=== PATIENT | female | born 1990 | race Caucasian/White ===

== ENCOUNTER 2016-08-23 08:41 | Outpatient (CLI) | payer MEDICAID | END 2016-08-23 08:42 | disposition critical access hospital (66) | DX: R06.00 Dyspnea, unspecified (principal) | CPT/HCPCS: A0425; A0429 ==

== ENCOUNTER 2016-08-23 09:01 | Emergency (ER) | payer MEDICAID ==
[2016-08-23] MEDS ORDERED: LORazepam 0.5 MG TABLET PO STA (09:41)
[2016-08-23] MEDS ORDERED: HYDROcod/ACETAM 5/325 MG TABLET PO STA ×2 (09:41→11:19)
[2016-08-23] MEDS ORDERED: HYDROcod/ACETAM 5/325 MG TABLET ONE ×2 (09:43→11:30)
[2016-08-23] MEDS ORDERED: LORazepam 0.5 MG TABLET ONE (09:44)
[2016-08-23] MEDS ORDERED: CEPHALEXIN 250 MG CAPSULE PO STA (11:15)
[2016-08-23] MEDS ORDERED: CEPHALEXIN 250 MG CAPSULE PO ONE (11:18)
[2016-08-23] MEDS ORDERED: POTASSIUM BICARB 25 MEQ TABLET PO STA (11:19)
[2016-08-23] MEDS ORDERED: KETOROLAC 60 MG/2 ML VIAL IM STA (11:19)
[2016-08-23] MEDS ORDERED: KETOROLAC 60 MG/2 ML VIAL ONE (11:30)
[2016-08-23] MEDS ORDERED: POTASSIUM BICARB 25 MEQ TABLET PO ONE (11:30)
== END 2016-08-23 13:14 | disposition home or self-care (01) ==
DX: F41.0 Panic disorder [episodic paroxysmal anxiety] (principal); R00.0 Tachycardia, unspecified; R07.1 Chest pain on breathing; N30.00 Acute cystitis without hematuria; Z87.891 Personal history of nicotine dependence
CPT/HCPCS: 36415; 71020; 80053; 81001; 83690; 83735; 83880; 84484; 85025; 85379; 87086; 93005; 93010; 96372; 99284; 99285; A9270

== ENCOUNTER 2016-11-14 13:09 | Emergency (ER) | payer MEDICAID ==
--- NOTE | 2016-11-14 13:25 | ED Physician Documentation ---
PD HPI NECK PAIN - Stated complaint Stated Complaint: NECK PX - Chief complaint Chief Complaint: Heent - History obtained from History obtained from: Patient - History of Present Illness Timing - onset: How many weeks ago (1) Timing - duration: Weeks (1) Timing - details: Gradual onset, Waxing and waning Location: Lower, Right Quality: Pain, Spasm, Aching. No: Sharp, Throbbing Associated symptoms: Other (does not radiate to arm/fingers). No: Fever, Weakness, Numbness Improves with: Rest. No: Meds (tried Ibuprofen without relief) Worsened by: Movement, Twisting (turning head) Contributing factors: Twisting. No: Trauma Recently seen: Not recently seen Review of Systems Constitutional: denies: Fever, Chills Throat: reports: Dental pain / toothache (for past week or so, right lower tooth hurting with some gum swelling.). 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: Ovarian cysts : None HEENT: None Psych: Anxiety, ADD/ADHD Musculoskeletal: None Derm: Psoriasis - Past Surgical History Past Surgical History: Yes Ortho: Other /TERMINATION CLERK: section, Tubal ligation, Breast reduction - Present Medications Home Medications: Ambulatory Orders Medication Instructions Recorded Confirmed Dextroamphetamine/Amphetamine 20 mg PO BID 06/13/14 11/14/16 [Adderall 20 mg Tablet] Fluoxetine HCl [Prozac] 20 mg PO DAILY 08/23/16 11/14/16 Cephalexin [Keflex] 500 mg PO TID #15 capsule 11/14/16 Chlorhexidine Gluconate [Peridex] 5 ml MM BID #118 ml 11/14/16 Dexamethasone [Decadron] 4 mg PO DAILY #5 tablet 11/14/16 HYDROcodone/ACET 7.5/325 [[place] 1 each PO Q6H PRN #20 tablet 11/14/16 7.5/325] Methocarbamol [Robaxin] 500 mg PO Q6H PRN #25 tablet 11/14/16 Propranolol HCl 10 mg PO DAILY #30 tablet 11/14/16 - Allergies Allergies/Adverse Reactions: Allergies Allergy/AdvReac Type Severity Reaction Status Date / Time Latex, Natural Rubber Allergy Intermediate Hives Verified 08/23/16 09:15 citalopram hydrobromide * Allergy Nausea Verified 08/23/16 09:15 [From Celexa] sulfamethoxazole Allergy Edema Verified 08/23/16 09:15 [From Bactrim] trimethoprim [From Bactrim] Allergy Edema Verified 08/23/16 09:15 - Social History Does the pt smoke?: No Smoking Status: Former smoker Does the pt drink ETOH?: Yes Does the pt have substance abuse?: No - Immunizations Immunizations are current?: No - POLST Patient has POLST: No PD ED PE NORMAL - Vitals Vital signs reviewed: Yes - General General: Alert and oriented X 3, No acute distress, Well developed/nourished - HEENT HEENT: Pharynx benign. No: Dentition benign (marked caries and decay of teeth. Right lower with dcay to gumline and some redness/swelling of gum. No fluctuance. No neck adenopathy. ) - Neck Neck: Supple, no meningeal sign, No adenopathy, Other (tenderness right lateral trapezius muscle at upper thoracic level. No redness/ sores/ swelling. 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 Can treat with meds. Coincident tooth pain with mild gum swelling, that I don't see connected as infectious and I don't feel nodes in neck. Can treat that. Unrelated, noted heart rate fast and she says she has had tachycarida at 110-115 range for past 2 years since being on Adderall. Was treated with Propranolol and felt okay with HR under 100, but is out of meds now. Can give Rx for short term, but more likely resolution might be lowering dose of adderall. Prior charts show resting HR 110 regularly. ), d/w patient Departure - Departure Disposition: 01 Home, Self Care Clinical Impression: Pain due to dental caries, Sinus tachycardia, Neck pain, acute Condition: Stable Record reviewed to determine appropriate education?: Yes Instructions: ED Neck Back Pain General Follow-Up: Manuela Bryson PA-C [Primary Care Provider] - Prescriptions: Dexamethasone [Decadron] 4 mg PO DAILY #5 tablet Cephalexin [Keflex] 500 mg PO TID #15 capsule HYDROcodone/ACET 7.5/325 [[place] 7.5/325] 1 each PO Q6H PRN #20 tablet PRN Reason: Pain Chlorhexidine Gluconate [Peridex] 5 ml MM BID #118 ml Propranolol HCl 10 mg PO DAILY #30 tablet Methocarbamol [Robaxin] 500 mg PO Q6H PRN #25 tablet PRN Reason: Spasms Comments: Stay well hydrated. Use Decadron daily for the next 5 days for inflammation. You can use Aleve or ibuprofen twice a day as well. Heat to the neck area to help reduce stiffness. Methocarbamol as needed for muscle stiffness as well. Add Tylenol or hydrocodone as needed for pain. For the tooth, use cephalexin in the antiseptic mouth rinse as directed. Follow-up with [facility] for dental work at the next available appointment. Regarding the persistent fast heart rate, can use propranolol daily short-term to reduce the heart rate. Follow-up with your primary care though to see if the Adderall dose might need to be decreased if your heart rate has been fast ever since being on that medicine. Discharge Date/Time: 11/14/16 14:46
[2016-11-14] MEDS ORDERED: HYDROcod/ACETAM 5/325 MG TABLET PO STA (14:14)
[2016-11-14] MEDS ORDERED: CEPHALEXIN 250 MG CAPSULE PO STA (14:14)
[2016-11-14] MEDS ORDERED: DEXAMETHASONE 10 MG/ML VIAL PO STA (14:14)
[2016-11-14] MEDS ORDERED: METHOCARBAMOL 500 MG TABLET PO STA (14:15)
[2016-11-14] MEDS ORDERED: HYDROcod/ACETAM 5/325 MG TABLET ONE (14:28)
[2016-11-14] MEDS ORDERED: CEPHALEXIN 250 MG CAPSULE PO ONE (14:28)
[2016-11-14] MEDS ORDERED: CHERRY SYRUP 10 ML UDC PO ONE (14:29)
[2016-11-14] MEDS ORDERED: DEXAMETHASONE 10 MG/ML VIAL ONE (14:29)
[2016-11-14] MEDS ORDERED: METHOCARBAMOL 500 MG TABLET PO ONE (14:29)
[2016-11-14 14:48] VITALS: BP 136/90
== END 2016-11-14 14:46 | disposition home or self-care (01) ==
LOC: ED 13:09
DX: M54.2 Cervicalgia (principal); K08.89 Other specified disorders of teeth and supporting structures; K02.9 Dental caries, unspecified; R00.0 Tachycardia, unspecified; Z87.891 Personal history of nicotine dependence
CPT/HCPCS: 99282; 99283; A9270

== ENCOUNTER 2017-10-12 15:05 | Emergency (ER) | payer MEDICAID ==
--- NOTE | 2017-10-12 17:39 | ED Physician Documentation ---
PD HPI MHE - Stated complaint Stated Complaint: PANIC ATTACK - Chief complaint Chief Complaint: MHE - History obtained from History obtained from: Patient - History of Present Illness Primary symptom: Depression, Anxiety. No: Suicidal ideation, Suicide attempt, Out of meds Timing - onset: How many hours ago (2) Contributing factors: No: Substance abuse - ETOH, Substance abuse - drugs Similar symptoms before: Diagnosis (anxiety) Recently seen: Not recently seen Review of Systems Constitutional: denies: Fever, Chills, Myalgias Nose: denies: Rhinorrhea / runny nose, Congestion Throat: denies: Sore throat Cardiac: denies: Chest pain / pressure, Palpitations Respiratory: denies: Dyspnea, Cough GI: denies: Vomiting, Diarrhea Neurologic: denies: Focal weakness, Numbness, Near syncope, Confused, Altered mental status, Headache, Head injury Psychiatric: reports: Depressed, Anxiety, Insomnia. 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: section, Tubal ligation, Breast reduction - Present Medications Home Medications: Ambulatory Orders Medication Instructions Recorded Confirmed Fluoxetine HCl [Prozac] 20 mg PO DAILY 08/23/16 11/14/16 HYDROcodone/ACET 7.5/325 [[place] 1 each PO Q6H PRN #20 tablet 11/14/16 7.5/325] Methocarbamol [Robaxin] 500 mg PO Q6H PRN #25 tablet 11/14/16 Propranolol HCl 10 mg PO DAILY #30 tablet 11/14/16 Lorazepam [Ativan] 1 mg PO Q8H PRN #20 tablet 10/12/17 - Allergies Allergies/Adverse Reactions: Allergies Allergy/AdvReac Type Severity Reaction Status Date / Time Latex, Natural Rubber Allergy Intermediate Hives Verified 08/23/16 09:15 citalopram hydrobromide * Allergy Nausea Verified 08/23/16 09:15 [From Celexa] sulfamethoxazole Allergy Edema Verified 08/23/16 09:15 [From Bactrim] trimethoprim [From Bactrim] Allergy Edema Verified 08/23/16 09:15 - Social History Does the pt smoke?: No Smoking Status: Never smoker Does the pt drink ETOH?: Yes Does the pt have substance abuse?: No - Immunizations Immunizations are current?: No - POLST Patient has POLST: No PD ED PE NORMAL - Vitals Vital signs reviewed: Yes - General General: Alert and oriented X 3, Well developed/nourished, Other (seems anxious and somewhat tearful. Conversant and interacts well. ) - HEENT HEENT: Moist mucous membranes, Pharynx benign - Neck Neck: Supple, no meningeal sign, No adenopathy, Thyroid normal - Cardiac Cardiac: RRR, No murmur - Respiratory Respiratory: Clear bilaterally - Abdomen Abdomen: Soft, Non tender - Derm Derm: Normal color, Warm and dry - Extremities Extremities: No tenderness to palpate, Normal ROM s pain - Neuro Neuro: Alert and oriented X 3, No motor deficit, Normal speech Eye Opening: Spontaneous Motor: Obeys Commands Verbal: Oriented GCS Score: 15 Results - Vitals Vitals: Oxygen O2 Source Room air PD MEDICAL DECISION MAKING - Sepsis Event Vital Signs: Oxygen O2 Source Room air Departure - Departure Disposition: Home, Self Care Clinical Impression: Anxiety, Panic attack Depression Qualifiers: Depression Type: dysthymia Qualified Code(s): F34.1 - Dysthymic disorder Condition: Stable Record reviewed to determine appropriate education?: Yes Instructions: ED Panic Attack Follow-Up: Manuela Bryson PA-C [Primary Care Provider] - Prescriptions: Lorazepam [Ativan] 1 mg PO Q8H PRN #20 tablet PRN Reason: Anxiety Comments: Drink lots of fluids. Increase your fluoxetine from 20 mg daily to 40 mg daily initially with every other day for a week and then daily. Use Lorazepam 1 mg 2- 3 times a day if needed for acute anxiety episodes. Try not to take it entirely regularly. Follow-up with your primary care in the next week or 2, call for an appointment. Discharge Date/Time: 10/12/17 18:39
[2017-10-12] MEDS ORDERED: LORazepam 0.5 MG TABLET PO STA (17:58)
[2017-10-12 18:40] VITALS: BP 130/88
== END 2017-10-12 18:39 | disposition home or self-care (01) ==
LOC: ED 15:05
DX: F41.9 Anxiety disorder, unspecified (principal); F41.0 Panic disorder [episodic paroxysmal anxiety]; F34.1 Dysthymic disorder
CPT/HCPCS: 93005; 99283; A9270

== ENCOUNTER 2017-10-22 21:37 | Emergency (ER) | payer MEDICAID ==
[2017-10-22] MEDS ORDERED: LORazepam 0.5 MG TABLET PO STA (22:08)
[2017-10-22] MEDS ORDERED: LORazepam 0.5 MG TABLET ONE (22:22)
--- NOTE | 2017-10-22 22:23 | ED Physician Documentation ---
PD HPI MHE - Stated complaint Stated Complaint: PANIC ATTACKS - Chief complaint Chief Complaint: MHE - History obtained from History obtained from: Patient, Family - History of Present Illness Primary symptom: Anxiety Timing - onset: Today, Chronic Similar symptoms before: Work up / diagnostics, Treatment Recently seen: Emergency Dept - Additional information Additional information: Patient is a 27 year old female who is presenting to the emergency department for an anxiety attack. patient has had multiple visits for the same thing. patient has not been able to schedule follow up appointment with her pcp to schedule outpatient follow up. Patient has multiple stressors. patient is unemployed, lives with her parents and had a femur fracture so her mobility is decreased. patient can not identify any specific triggers and reports that she tries breathing exercises or apps. and talking with her siblings but she still has multiple attacks. Review of Systems Ten Systems: 10 systems reviewed and negative Psychiatric: reports: Depressed, Anxiety. 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 : None HEENT: None Psych: Anxiety, ADD/ADHD Musculoskeletal: None Derm: Psoriasis - Past Surgical History Past Surgical History: Yes Ortho: Other /GLASSWORKER: section, Tubal ligation, Breast reduction - Present Medications Home Medications: Ambulatory Orders Medication Instructions Recorded Confirmed Fluoxetine HCl [Prozac] 20 mg PO DAILY 08/23/16 11/14/16 HYDROcodone/ACET 7.5/325 [[place] 1 each PO Q6H PRN #20 tablet 11/14/16 7.5/325] Methocarbamol [Robaxin] 500 mg PO Q6H PRN #25 tablet 11/14/16 Propranolol HCl 10 mg PO DAILY #30 tablet 11/14/16 Lorazepam [Ativan] 1 mg PO Q8H PRN #20 tablet 10/12/17 - Allergies Allergies/Adverse Reactions: Allergies Allergy/AdvReac Type Severity Reaction Status Date / Time Latex, Natural Rubber Allergy Intermediate Hives Verified 10/22/17 21:44 citalopram hydrobromide * Allergy Nausea Verified 10/22/17 21:44 [From Celexa] sulfamethoxazole Allergy Edema Verified 10/22/17 21:44 [From Bactrim] trimethoprim [From Bactrim] Allergy Edema Verified 10/22/17 21:44 - Social History Does the pt smoke?: No Smoking Status: Former smoker Does the pt drink ETOH?: Yes Does the pt have substance abuse?: No - Immunizations Immunizations are current?: No - POLST Patient has POLST: No PD ED PE NORMAL - Vitals Vital signs reviewed: Yes - General General: Alert and oriented X 3 - HEENT HEENT: Atraumatic - Cardiac Cardiac: RRR - Respiratory Respiratory: No respiratory distress - Derm Derm: Normal color - Neuro Neuro: Alert and oriented X 3, No motor deficit, Normal speech Eye Opening: Spontaneous PD ED PE EXPANDED - Psych Psych: Depressed, Tearful, Anxious. No: Suicidal, Homicidal Results - Vitals Vitals: Vital Signs - 24 hr 10/22/17 10/22/17 21:39 22:31 Temperature 35.7 C L Heart Rate 76 73 Respiratory 19 20 Rate Blood Pressure 144/97 H 146/89 H O2 Saturation 99 100 Oxygen O2 Source Room air PD MEDICAL DECISION MAKING - ED course Complexity details: reviewed old records, re-evaluated patient, considered differential, d/w patient, d/w family ED course: Patient was seen and examined at bedside along with her father. patient's symptoms and terminal operator plan were discussed with her. Patient was given resources and one dose of ativan. patient and father felt comfortable with the plan and patient was stable for discharge with outpatient follow up. - Sepsis Event Vital Signs: Vital Signs - 24 hr 10/22/17 10/22/17 21:39 22:31 Temperature 35.7 C L Heart Rate 76 73 Respiratory 19 20 Rate Blood Pressure 144/97 H 146/89 H O2 Saturation 99 100 Oxygen O2 Source Room air Departure - Departure Disposition: 01 Home, Self Care Clinical Impression: Panic attack Condition: Good Instructions: ED Stress React, ED Panic Attack Follow-Up: Manuela Bryson PA-C [Primary Care Provider] - Within 3 Days Comments: Stress and anxiety is a very complicated medical illness. it is normally multifactorial and treatment normally takes a number of different approaches. the medications are only a small part of the treatment. You should call your doctor on tuesday to schedule a follow up appointment and set up care with a therapist. In the meantime you can try to exercise in anyway that you can. You can try lifting weights, use exercise bands or isometric exercises. You can also try to decrease the amount of sugar and stimulants in your diet. It you are ever feeling overwhelmed you can call the crisis line at to talk with someone and to try to schedule a follow up appointment. YOu may return to the emergency department at any time for new, worsening or uncontrollable symptoms. Discharge Date/Time: 10/22/17 22:30
[2017-10-22 22:32] VITALS: BP 146/89
== END 2017-10-22 22:30 | disposition home or self-care (01) ==
LOC: ED 21:37
DX: F41.0 Panic disorder [episodic paroxysmal anxiety] (principal); Z87.891 Personal history of nicotine dependence
CPT/HCPCS: 99283; A9270

== ENCOUNTER 2018-03-23 07:00 | Outpatient (CLI) | payer MEDICAID | END 2018-03-23 07:01 | disposition critical access hospital (66) | LOC: EMS 07:00 | PROVIDERS: ATTEND Surgery | DX: R11.2 Nausea with vomiting, unspecified (principal); R42 Dizziness and giddiness | CPT/HCPCS: A0425; A0429; A0999 ==

== ENCOUNTER 2018-03-23 07:24 | Emergency (ER) | payer MEDICAID ==
[2018-03-23] MEDS ORDERED: ONDANSETRON ODT 4 MG TABLET TL STA (07:59)
[2018-03-23] MEDS ORDERED: LORazepam 0.5 MG TABLET PO STA (08:00)
[2018-03-23 08:50] LABS: BASOPHILS # (AUTO) 0.1 10^3/uL (0.0-0.1); BASOPHILS % (AUTO) 0.8 %; EOSINOPHILS % (AUTO) 0.2 %; LYMPHOCYTES # (AUTO) 1.9 10^3/uL (1.5-3.5); LYMPHOCYTES % (AUTO) 13.2 %; MEAN CORPUSCULAR HEMOGLOBIN 28.8 pg (27.0-31.0); MEAN CORPUSCULAR VOLUME 84.7 fL (81.0-99.0); MEAN PLATELET VOLUME 7.6 fL (7.9-10.8); MONOCYTES % (AUTO) 6.8 %; NEUTROPHILS # (AUTO) 11.4 10^3/uL (1.5-6.6); PLT - PLATELET COUNT 407 10^3/uL (130-450); RED BLOOD COUNT 4.85 10^6/uL (4.20-5.40); RED CELL DISTRIBUTION WIDTH 13.3 % (12.0-15.0); WHITE BLOOD COUNT 14.4 x10^3/uL (4.8-10.8)
[2018-03-23 08:59] LABS: ALBUMIN 3.6 g/dL (3.2-5.5); ALBUMIN/GLOBULIN RATIO 0.8 (1.0-2.2); BILIRUBIN,TOTAL 0.4 mg/dL (0.2-1.0); CREATININE 0.5 mg/dL (0.4-1.0); MAGNESIUM 1.9 mg/dL (1.7-2.8); TOTAL PROTEIN 8.3 g/dL (6.7-8.2)
[2018-03-23] MEDS ORDERED: PROMETHAZINE 25 MG TABLET PO STA (09:37)
--- NOTE | 2018-03-23 10:53 | ED Physician Documentation ---
PD HPI CHEST PAIN - Stated complaint Stated Complaint: Dizziness - Chief complaint Chief Complaint: Abd Pain - History obtained from History obtained from: Patient - History of Present Illness Timing - onset: How many weeks ago (has felt increased nausea and anxioety the past couple of weeks since increased dose of Straterra. Has had nausea and anxiety in the past, but more recently. Today with feeling of anxiety when felt that heart was skipping/racing. No dyspnea.) Timing - onset during: Rest Timing - duration: Hours Timing - details: Abrupt onset, Still present Quality: Tightness, Other (feeling of heart racing, and chest tightness.) Location: Substernal Radiation: No: Jaw, Neck, Back Improved by: No: Rest Associated symptoms: Shortness of air, Nausea, Palpitations. No: Feeling faint / dizzy, General Weakness, Cough Similar symptoms before: Diagnosis (anxiety) Recently seen: Clinic (2 weeks ago with change in med doses) Review of Systems Constitutional: denies: Fever, Chills Nose: denies: Rhinorrhea / runny nose, Congestion Throat: denies: Sore throat Cardiac: reports: Chest pain / pressure, Palpitations. denies: Pedal edema, Calf pain Respiratory: reports: Dyspnea. denies: Cough, Wheezing GI: denies: Abdominal Pain, Nausea, Vomiting, Diarrhea Musculoskeletal: denies: Neck pain, Back pain Neurologic: reports: Generalized weakness. 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: section, Tubal ligation, Breast reduction - Present Medications Home Medications: Ambulatory Orders Medication Instructions Recorded Confirmed Fluoxetine HCl [Prozac] 20 mg PO DAILY 08/23/16 11/14/16 Propranolol HCl 10 mg PO DAILY #30 tablet 11/14/16 Atomoxetine HCl [Strattera] 100 mg PO 03/23/18 03/23/18 LORazepam [Ativan] 1 mg PO BID PRN #15 tablet 03/23/18 Ondansetron Odt [Zofran] 4 mg TL Q6H PRN #20 tablet 03/23/18 tiZANidine [Zanaflex] 4 mg pe 03/23/18 - Allergies Allergies/Adverse Reactions: Allergies Allergy/AdvReac Type Severity Reaction Status Date / Time Latex, Natural Rubber Allergy Intermediate Hives Verified 03/23/18 07:32 citalopram hydrobromide * Allergy Nausea Verified 03/23/18 07:32 [From Celexa] sulfamethoxazole Allergy Edema Verified 03/23/18 07:32 [From Bactrim] trimethoprim [From Bactrim] Allergy Edema Verified 03/23/18 07:32 - Social History Does the pt smoke?: No Smoking Status: Never smoker Does the pt drink ETOH?: Yes Does the pt have substance abuse?: No - Immunizations Immunizations are current?: No - POLST Patient has POLST: No PD ED PE NORMAL - Vitals Vital signs reviewed: Yes - General General: Alert and oriented X 3, Well developed/nourished, Other (seems anxious) - HEENT HEENT: Pharynx benign - Neck Neck: Supple, no meningeal sign, No adenopathy - Cardiac Cardiac: RRR, No murmur - Respiratory Respiratory: Clear bilaterally - Abdomen Abdomen: Soft, Non tender - Back Back: No CVA TTP - Derm Derm: Normal color, Warm and dry - Extremities Extremities: No tenderness to palpate, Normal ROM s pain, No edema, No calf tenderness / cord - Neuro Neuro: Alert and oriented X 3, No motor deficit, Normal speech Results - Vitals Vitals: Oxygen O2 Source Room air - EKG (time done) 07:32 Rate: Rate (enter#) (91) Rhythm: NSR [place]: Normal Intervals: Normal [place] QRS: Normal Ischemia: Normal ST segments. No: ST elevation c/w ischemia, ST depression - Labs Labs: Laboratory Tests 03/23/18 03/23/18 03/23/18 08:38 08:38 08:38 WBC 14.4 H RBC 4.85 Hgb 14.0 Hct 41.1 MCV 84.7 MCH 28.8 MCHC 34.0 RDW 13.3 Plt Count 407 MPV 7.6 L Neut # (Auto) 11.4 H Lymph # (Auto) 1.9 [place] # (Auto) 1.0 Eos # (Auto) 0.0 Baso # (Auto) 0.1 Absolute Nucleated RBC 0.00 Nucleated RBC % 0.0 Sodium 135 Potassium 3.6 Chloride 106 Carbon Dioxide 23 Anion Gap 6.0 BUN 8 Creatinine 0.5 Estimated GFR (MDRD) 147 Glucose 130 H Calcium 9.0 Magnesium 1.9 Total Bilirubin 0.4 AST 30 ALT 31 Alkaline Phosphatase 109 Total Protein 8.3 H Albumin 3.6 Globulin 4.7 H Albumin/Globulin Ratio 0.8 L Lipase 20 L TSH 1.15 PD MEDICAL DECISION MAKING - ED course Complexity details: re-evaluated patient (feeling better with meds. Talked with her about having PCP decrease her Straterra dose back down, since feeling nauseated and anxious since the increased dose. Can give nausea meds and short term ativan for episodes. ), considered differential (had feeling of heart palpitations and then felt short of breath and anxious. Has had anxiety in the past. Heart rate and rhythm normal here. ), d/w patient Departure - Departure Disposition: 01 Home, Self Care Clinical Impression: Heart palpitations, Anxiety reaction Condition: Stable Record reviewed to determine appropriate education?: Yes Follow-Up: Manuela Bryson PA-C [Primary Care Provider] - Prescriptions: LORazepam [Ativan] 1 mg PO BID PRN #15 tablet PRN Reason: Anxiety Ondansetron Odt [Zofran] 4 mg TL Q6H PRN #20 tablet PRN Reason: Nausea / Vomiting Comments: Stay well-hydrated. Continue usual medications. Add ondansetron if needed for nausea. Ativan if needed for the anxiety reactions. Follow-up with your primary care next week regarding ongoing medications and prescriptions. Discharge Date/Time: 03/23/18 11:16
[2018-03-23 10:58] VITALS: BP 116/90
== END 2018-03-23 11:16 | disposition home or self-care (01) ==
LOC: EDUNIT# → ED 07:24
DX: R00.2 Palpitations (principal); F41.9 Anxiety disorder, unspecified
CPT/HCPCS: 36415; 80053; 83690; 83735; 84443; 85025; 93005; 99283; A9270; Q0162; Q0169

== ENCOUNTER 2018-04-11 08:30 | Outpatient (CLI) | payer MEDICAID | END 2018-04-11 08:31 | disposition critical access hospital (66) | LOC: EMS 08:30 | PROVIDERS: ATTEND Surgery | DX: R07.9 Chest pain, unspecified (principal); R00.2 Palpitations; R11.0 Nausea | CPT/HCPCS: A0425; A0429; A0999 ==

== ENCOUNTER 2018-04-11 08:53 | Emergency (ER) | payer MEDICAID ==
--- NOTE | 2018-04-11 09:25 | ED Physician Documentation ---
PD HPI CHEST PAIN - Stated complaint Stated Complaint: PALPITATIONS - Chief complaint Chief Complaint: Cardiac - History obtained from History obtained from: Patient - History of Present Illness Timing - onset during: Rest Timing - duration: Hours (5) Timing - details: Abrupt onset Pain level max: 7 Pain level now: 7 Quality: Tightness Location: Other (mid chest) Radiation: Other (no) Improved by: Nothing Worsened by: Other (nothing) Associated symptoms: Nausea, Palpitations. No: Shortness of air, Diaphoresis, Vomiting, Feeling faint / dizzy, General Weakness, Cough Similar symptoms before: Work up / diagnostics Recently seen: Not recently seen - Additional information Additional information: 27-year-old female with history of smoking and vaping but quit 2 weeks ago, palpitation with chest discomfort the past 2 years, panic attacks the past 2 years, vitamin D deficiency and bilateral hip fracture from falls 3 years ago and currently using crutches with plans of a right hip replacement in a month. Here with complaint of feeling palpitation with chest pressure While she was resting in bed 5 hours ago. She denies any shortness of breath, dizziness, Cough or recent illness. She denies any Trauma, travel or Recent surgeries Review of Systems Ten Systems: 10 systems reviewed and negative Constitutional: denies: Fever, Myalgias Cardiac: reports: Chest pain / pressure, Palpitations. denies: Pedal edema, Calf pain Respiratory: denies: Dyspnea, Cough GI: reports: Nausea. 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 PROJECT ARCHITECT: Ovarian cysts : None HEENT: None Psych: Anxiety, ADD/ADHD Musculoskeletal: None Derm: Psoriasis - Past Surgical History Past Surgical History: Yes Ortho: Other /SENIOR PROJECT ARCHITECT: section, Tubal ligation, Breast reduction - Present Medications Home Medications: Ambulatory Orders Medication Instructions Recorded Confirmed Fluoxetine HCl [Prozac] 20 mg PO DAILY 08/23/16 11/14/16 Propranolol HCl 10 mg PO DAILY #30 tablet 11/14/16 Atomoxetine HCl [Strattera] 100 mg PO 03/23/18 03/23/18 LORazepam [Ativan] 1 mg PO BID PRN #15 tablet 03/23/18 Ondansetron Odt [Zofran] 4 mg TL Q6H PRN #20 tablet 03/23/18 tiZANidine [Zanaflex] 4 mg pe 03/23/18 Cephalexin [Keflex] 500 mg PO TID #21 capsule 04/11/18 - Allergies Allergies/Adverse Reactions: Allergies Allergy/AdvReac Type Severity Reaction Status Date / Time Latex, Natural Rubber Allergy Intermediate Hives Verified 04/11/18 09:03 citalopram hydrobromide * Allergy Nausea Verified 04/11/18 09:03 [From Celexa] sulfamethoxazole Allergy Edema Verified 04/11/18 09:03 [From Bactrim] trimethoprim [From Bactrim] Allergy Edema Verified 04/11/18 09:03 - Social History Does the pt smoke?: No Smoking Status: Former smoker Does the pt drink ETOH?: Yes Does the pt have substance abuse?: No - Immunizations Immunizations are current?: No Immunizations: TDAP >10years/unknown - POLST Patient has POLST: No PD ED PE NORMAL - Vitals Vital signs reviewed: Yes - General General: Alert and oriented X 3, No acute distress, Well developed/nourished - HEENT HEENT: Moist mucous membranes, Pharynx benign - Neck Neck: Supple, no meningeal sign, No adenopathy, Thyroid normal - Cardiac Cardiac: RRR, No murmur - Respiratory Respiratory: No respiratory distress, Clear bilaterally - Abdomen Abdomen: Normal bowel sounds, Soft, Non tender, Non distended - Back Back: No CVA TTP - Derm Derm: Normal color, Warm and dry - Extremities Extremities: No deformity - Neuro Neuro: Alert and oriented X 3 - Psych Psych: Normal mood, Normal affect Results - Vitals Vitals: Vital Signs - 24 hr 04/11/18 04/11/18 04/11/18 08:56 10:59 12:38 Temperature 36.9 C Heart Rate 111 H 111 H 95 Respiratory 18 18 24 Rate Blood Pressure 139/91 H 127/89 H 150/94 H O2 Saturation 98 100 97 Oxygen O2 Source Room air - EKG (time done) 0902 Rate: Rate (enter#) Rhythm: Sinus tachycardia [place]: Normal Intervals: Normal [place] QRS: Normal Ischemia: Non specific changes - Labs Labs: Laboratory Tests 04/11/18 04/11/18 04/11/18 09:05 09:40 09:40 WBC 19.7 H RBC 4.78 Hgb 13.8 Hct 41.1 MCV 86.0 MCH 28.9 MCHC 33.6 RDW 13.6 Plt Count 468 H MPV 7.6 L Neut # (Auto) 16.3 H Lymph # (Auto) 2.1 Dundy # (Auto) 1.2 H Eos # (Auto) 0.0 Baso # (Auto) 0.1 Absolute Nucleated RBC 0.00 Nucleated RBC % 0.0 D-Dimer Sodium 137 Potassium 3.6 Chloride 101 Carbon Dioxide 26 Anion Gap 10.0 BUN 8 Creatinine 0.6 Estimated GFR (MDRD) 119 Glucose 135 H Lactic Acid Calcium 9.2 Total Bilirubin 0.5 AST 30 ALT 40 Alkaline Phosphatase 111 Troponin I < 0.04 Total Protein 8.5 H Albumin 3.7 Globulin 4.8 H Albumin/Globulin Ratio 0.8 L Lipase 19 L TSH Serum HCG, Qual Urine Color Urine Clarity Urine pH Ur Specific [place] Urine Protein Urine Glucose (UA) Urine Ketones Urine Occult Blood Urine Nitrite Urine Bilirubin Urine Urobilinogen Ur Leukocyte Esterase Urine RBC Urine WBC Ur Squamous Epith Cells Urine Bacteria Ur Microscopic Review Urine Culture Comments 04/11/18 04/11/18 04/11/18 09:40 09:40 10:43 WBC RBC Hgb Hct MCV MCH MCHC RDW Plt Count MPV Neut # (Auto) Lymph # (Auto) Dundy # (Auto) Eos # (Auto) Baso # (Auto) Absolute Nucleated RBC Nucleated RBC % D-Dimer Sodium Potassium Chloride Carbon Dioxide Anion Gap BUN Creatinine Estimated GFR (MDRD) Glucose Lactic Acid 1.8 Calcium Total Bilirubin AST ALT Alkaline Phosphatase Troponin I Total Protein Albumin Globulin Albumin/Globulin Ratio Lipase TSH 1.66 Serum HCG, Qual NEGATIVE Urine Color Urine Clarity Urine pH Ur Specific [place] Urine Protein Urine Glucose (UA) Urine Ketones Urine Occult Blood Urine Nitrite Urine Bilirubin Urine Urobilinogen Ur Leukocyte Esterase Urine RBC Urine WBC Ur Squamous Epith Cells Urine Bacteria Ur Microscopic Review Urine Culture Comments 04/11/18 04/11/18 04/11/18 11:30 13:33 13:33 WBC RBC Hgb Hct MCV MCH MCHC RDW Plt Count MPV Neut # (Auto) Lymph # (Auto) Dundy # (Auto) Eos # (Auto) Baso # (Auto) Absolute Nucleated RBC Nucleated RBC % D-Dimer < 200.0 L Sodium Potassium Chloride Carbon Dioxide Anion Gap BUN Creatinine Estimated GFR (MDRD) Glucose Lactic Acid Calcium Total Bilirubin AST ALT Alkaline Phosphatase Troponin I < 0.04 Total Protein Albumin Globulin Albumin/Globulin Ratio Lipase TSH Serum HCG, Qual Urine Color YELLOW Urine Clarity HAZY Urine pH 6.0 Ur Specific Fli[place] >=1.030 H Urine Protein NEGATIVE Urine Glucose (UA) NEGATIVE Urine Ketones TRACE Urine Occult Blood MODERATE H Urine Nitrite NEGATIVE Urine Bilirubin NEGATIVE Urine Urobilinogen 0.2 (NORMAL) Ur Leukocyte Esterase NEGATIVE Urine RBC 0-5 Urine WBC 4-5 Ur Squamous Epith Cells MANY Squamous H Urine Bacteria Moderate H Ur Microscopic Review INDICATED Urine Culture Comments NOT INDICATED PD MEDICAL DECISION MAKING - ED course Complexity details: reviewed results, re-evaluated patient, considered differential (Thyroid disease, electrolyte imbalance, anemia, ACS, PE, panic attack), d/w patient ED course: 1042 patient informed of test results. Patient denies any fever or coughing or taking any steroids. Her white count today is 19.7 patient did claim that she has urinary frequency with intermittent dysuria but no vaginal discharge. She claims she does not drink water. Patient's heart rate is less than 100 cardiac technologist is sinus rhythm. 1305 cardiac technologist is sinus rhythm at rate of 88-90. Patient updated on test results and agreed to the second troponin and a d-dimer to rule out blood clots. Patient states she has still slight pressure. Patient is requesting for antianxiety medication. Will give Ativan. 1419 patient denies any chest pain or shortness of breath or feeling palpitation. Patient stated she received Ativan and was appreciative of this. Discussed outpatient follow-up for her tachycardia which includes referral to paint preparer for Holter monitor and outpatient echocardiogram.Was also instructed to get another CBC to monitor her elevated WBC. Departure - Departure Disposition: 01 Home, Self Care Clinical Impression: Atypical chest pain, Intermittent palpitations Leukocytosis Qualifiers: Leukocytosis type: unspecified Qualified Code(s): D72.829 - Elevated white blood cell count, unspecified UTI (urinary tract infection) Qualifiers: Urinary tract infection type: acute cystitis Hematuria presence: without hematuria Qualified Code(s): N30.00 - Acute cystitis without hematuria Condition: Stable Instructions: ED Chest Pain NonCardiac, ED UTI Cystitis Female, ED Palpitations Prescriptions: Cephalexin [Keflex] 500 mg PO TID #21 capsule Comments: Drinks 6-8 glasses of water per day. Take the Keflex for your UTI. Follow-up with your primary doctor in 2 days to have your white count recheck. Today it is 19.7. Get a referral to a paint preparer from your primary doctor for a event week Holter monitor and an outpatient echocardiogram. If worse return to the emergency room.
--- NOTE | 2018-04-11 09:39 | XRAY Report ---
Reason: palpitations, chest pressure. Procedure Date: 04/11/2018 Accession Number: [id number] / [id number] Procedure: XR - Chest 1 View X-Ray CPT Code: 82274 FULL RESULT: EXAM: CHEST RADIOGRAPHY EXAM DATE: 04/11/2018 09:25 AM. CLINICAL HISTORY: Palpitations, chest pressure. COMPARISON: CHEST 2 VIEW PA/LAT 08/23/2016 9:45 AM. TECHNIQUE: 1 view. FINDINGS: Lungs/Pleura: Relatively shallow inspiration. No consolidation, vascular congestion, pleural effusion, or pneumothorax. Mediastinum: Normal cardiomediastinal silhouette. Other: No acute fracture evident. IMPRESSION: 1. Shallow inspiration. Otherwise unremarkable. RADIA
[2018-04-11 09:50] LABS: BASOPHILS # (AUTO) 0.1 10^3/uL (0.0-0.1); BASOPHILS % (AUTO) 0.4 %; EOSINOPHILS % (AUTO) 0.2 %; HGB - HEMOGLOBIN 13.8 g/dL (12.0-16.0); LYMPHOCYTES # (AUTO) 2.1 10^3/uL (1.5-3.5); LYMPHOCYTES % (AUTO) 10.8 %; MEAN CORPUSCULAR HEMOGLOBIN 28.9 pg (27.0-31.0); MEAN CORPUSCULAR HGB CONC 33.6 g/dL (32.0-36.0); MEAN PLATELET VOLUME 7.6 fL (7.9-10.8); MONOCYTES # (AUTO) 1.2 10^3/uL (0.0-1.0); MONOCYTES % (AUTO) 6.2 %; NEUTROPHILS # (AUTO) 16.3 10^3/uL (1.5-6.6); NEUTROPHILS % (AUTO) 82.4 %; PLT - PLATELET COUNT 468 10^3/uL (130-450); RED BLOOD COUNT 4.78 10^6/uL (4.20-5.40); RED CELL DISTRIBUTION WIDTH 13.6 % (12.0-15.0); WHITE BLOOD COUNT 19.7 x10^3/uL (4.8-10.8)
[2018-04-11 10:25] LABS: HCG,QUALITATIVE BLOOD NEGATIVE
[2018-04-11 10:33] LABS: ALBUMIN 3.7 g/dL (3.2-5.5); ALBUMIN/GLOBULIN RATIO 0.8 (1.0-2.2); BILIRUBIN,TOTAL 0.5 mg/dL (0.2-1.0); CALCIUM 9.2 mg/dL (8.5-10.3); CREATININE 0.6 mg/dL (0.4-1.0); TOTAL PROTEIN 8.5 g/dL (6.7-8.2)
[2018-04-11] MEDS: ACETAMINOPHEN 325 MG TABLET PO STA (10:46)
[2018-04-11 12:00] LABS: BILIRUBIN,URINE NEGATIVE (NEGATIVE); GLUCOSE, URINE (UA) NEGATIVE (NEGATIVE); KETONES,URINE (UA) TRACE mg/dL (NEGATIVE); LEUKOCYTE ESTERASE, URINE NEGATIVE (NEGATIVE); NITRITE,URINE NEGATIVE (NEGATIVE); OCCULT BLOOD,URINE MODERATE (NEGATIVE); PROTEIN,URINE NEGATIVE (NEGATIVE); UROBILINOGEN,URINE 0.2 (NORMAL) E.U./dL (NORMAL)
[2018-04-11 12:04] LABS: CLARITY,URINE HAZY (CLEAR)
[2018-04-11 12:09] LABS: BACTERIA,URINE Moderate /HPF (None Seen); RBC,URINE 0-5 /HPF (0-5); SQUAMOUS EPITHELIAL CELL,UR MANY Squamous (<= Few)
[2018-04-11] MEDS: LORazepam 0.5 MG TABLET PO STA (14:11)
[2018-04-11] MEDS: LORazepam 2 MG/ML VIAL IVP STA (14:13)
[2018-04-11] MEDS ORDERED: LORazepam 0.5 MG TABLET ONE (14:13)
[2018-04-11 14:27] VITALS: BP 134/77
== END 2018-04-11 14:35 | disposition home or self-care (01) ==
LOC: EDUNIT# → ED 08:53
DX: R07.89 Other chest pain (principal); R00.2 Palpitations; D72.829 Elevated white blood cell count, unspecified; N30.00 Acute cystitis without hematuria; F41.9 Anxiety disorder, unspecified; R00.0 Tachycardia, unspecified; I10 Essential (primary) hypertension; Z87.891 Personal history of nicotine dependence
CPT/HCPCS: 36415; 71045; 80053; 81001; 81003; 83605; 83690; 84443; 84484; 84703; 85025; 85379; 87086; 93005; 96374; 99283; 99284

== ENCOUNTER 2018-05-29 02:46 | Emergency (ER) | payer MEDICAID ==
[2018-05-29 02:54] VITALS: BP 143/95
[2018-05-29] MEDS ORDERED: LIDOCAINE VISCOUS 2% 15 ML UDC MM STA (03:00)
[2018-05-29] MEDS ORDERED: MAG HYDROX/AL HYDROX/SIMETH 30 ML UDC PO STA (03:00)
--- NOTE | 2018-05-29 03:09 | ED Physician Documentation ---
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 Her palpitations started 2 or 3 hours prior to arrival while in bed. She denies associated chest pain, cough, or shortness of breath. She reports mild nausea, without vomiting. She feels somewhat anxious, describing it as "like just before a panic attack comes on." She she reports having history of panic attacks, with similar symptoms in the past, at which times her symptoms improved with antianxiety medication. She denies the use of alcohol or other drugs, except for marijuana. She has a history of drinking energy drinks, stating she is trying to cut down because of anxiety. Review of Systems Constitutional: denies: Fever Ears: denies: Tinnitus/ringing Nose: denies: Congestion Throat: denies: Sore throat Cardiac: reports: Palpitations. denies: Chest pain / pressure Respiratory: denies: Dyspnea, Cough GI: reports: Nausea. 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 : None HEENT: None Psych: Anxiety, ADD/ADHD Musculoskeletal: None Derm: Psoriasis - Past Surgical History Past Surgical History: Yes Ortho: Other /POCKETS AND PIECES NECKTIE OPERATOR: section, Tubal ligation, Breast reduction - Present Medications Home Medications: Ambulatory Orders Medication Instructions Recorded Confirmed Fluoxetine HCl [Prozac] 20 mg PO DAILY 08/23/16 11/14/16 Propranolol HCl 10 mg PO DAILY #30 tablet 11/14/16 Atomoxetine HCl [Strattera] 100 mg PO 03/23/18 03/23/18 LORazepam [Ativan] 1 mg PO BID PRN #15 tablet 03/23/18 Ondansetron Odt [Zofran] 4 mg TL Q6H PRN #20 tablet 03/23/18 tiZANidine [Zanaflex] 4 mg pe 03/23/18 Cephalexin [Keflex] 500 mg PO TID #21 capsule 04/11/18 raNITIdine HCl [Ranitidine HCl] 150 mg PO BID #28 capsule 05/29/18 - Allergies Allergies/Adverse Reactions: Allergies Allergy/AdvReac Type Severity Reaction Status Date / Time Latex, Natural Rubber Allergy Intermediate Hives Verified 04/11/18 09:03 citalopram hydrobromide * Allergy Nausea Verified 04/11/18 09:03 [From Celexa] sulfamethoxazole Allergy Edema Verified 04/11/18 09:03 [From Bactrim] trimethoprim [From Bactrim] Allergy Edema Verified 04/11/18 09:03 - Social History Does the pt smoke?: No Smoking Status: Never smoker Does the pt drink ETOH?: Yes Does the pt have substance abuse?: No Substance Use and Type: Marijuana - Immunizations Immunizations are current?: No Immunizations: TDAP >10years/unknown - POLST Patient has POLST: No PD ED PE NORMAL - Vitals Vital signs reviewed: Yes (Borderline hypertension initially. Normal heart rate.) - General General: Alert and oriented X 3, Well developed/nourished - HEENT HEENT: Atraumatic, Pharynx benign - Neck Neck: No adenopathy, Thyroid normal, No JVD - Cardiac Cardiac: RRR, No murmur - Respiratory Respiratory: No respiratory distress, Clear bilaterally - Abdomen Abdomen: Soft, Other (Mild epigastric tenderness to palpation, without rebound or guarding.) - Back Back: No CVA TTP - Derm Derm: No rash - Extremities Extremities: No edema, No calf tenderness / cord - Neuro Neuro: Alert and oriented X 3, No motor deficit, Normal speech Results - Vitals Vitals: Vital Signs - 24 hr 05/29/18 05/29/18 02:51 02:54 Temperature 36.0 C L 36.0 C L Heart Rate 86 83 Respiratory 18 18 Rate Blood Pressure 143/95 H 143/95 H Blood Pressure 143/95 H [Right] O2 Saturation 99 96 Oxygen O2 Source Room air - EKG (time done) 03:05 Rate: Rate (enter#) (83) Rhythm: NSR [place]: Normal Intervals: Normal [place] QRS: Normal Ischemia: Normal ST segments Compare to prior EKG: Unchanged from prior EKG Computer interpretation: Agree with computer PD MEDICAL DECISION MAKING - ED course Complexity details: reviewed old records, reviewed results, re-evaluated patient, considered differential, d/w patient, d/w family ED course: The patient's presentation is most consistent with gastroesophageal reflux. Despite her feeling of palpitations, her heart rate is normal in the low to mid 80s, without dysrhythmia. Her electrocardiogram is without acute ischemic changes, and is unchanged from previous EKG. Treatment in the emergency department included administration of GI cocktail, which completely relieved her symptoms. I do not think further emergent workup is clinically indicated. She is being discharged with a prescription for ranitidine. I discussed with her and her male core shaper the diagnosis, symptomatic treatment and outpatient follow-up, as well as potentially worrisome signs or symptoms that should prompt reevaluation in the emergency department. Departure - Departure Disposition: 01 Home, Self Care Clinical Impression: Gastroesophageal reflux disease Qualifiers: Esophagitis presence: esophagitis presence not specified Qualified Code(s): K21.9 - Gastro-esophageal reflux disease without esophagitis Condition: Stable Instructions: ED GERD Follow-Up: Manuela Bryson PA-C [Primary Care Provider] - Prescriptions: raNITIdine HCl [Ranitidine HCl] 150 mg PO BID #28 capsule Comments: Minimize coffee, michelle, alcohol, and energy drinks. Take ranitidine twice daily as prescribed. Follow-up with your primary physician within 2 weeks. Call to schedule an appointment. Return to the emergency department if you develop increasing chest pain, shortness of breath, palpitations, persistent vomiting, or otherwise worsening symptoms.
== END 2018-05-29 03:34 | disposition home or self-care (01) ==
LOC: ED 02:46
DX: K21.9 Gastro-esophageal reflux disease without esophagitis (principal); R00.2 Palpitations; F41.9 Anxiety disorder, unspecified; I10 Essential (primary) hypertension
CPT/HCPCS: 93005; 99283; A9270

== ENCOUNTER 2018-07-20 01:06 | Emergency (ER) | payer MEDICAID ==
[2018-07-20 01:23] VITALS: BP 149/110
--- NOTE | 2018-07-20 01:32 | ED Physician Documentation ---
PD HPI HEENT - Stated complaint Stated Complaint: DENTAL PAIN - Chief complaint Chief Complaint: Heent - History obtained from History obtained from: Patient - History of Present Illness Timing - onset: Yesterday Timing - duration: Days (2) Timing - details: Gradual onset Pain level max: 8 Pain level now: 8 Location: Tooth (Left lower molar) Improves: Medication (Aleve) Worsens: Temperatures, Other (Chewing) Associated symptoms: No: Fever, Facial swelling Recently seen: Not recently seen Review of Systems Constitutional: denies: Fever GI: denies: Vomiting : denies: Now EGA PD PAST MEDICAL HISTORY - Past Medical History Cardiovascular: Hypertension Respiratory: None Endocrine/Autoimmune: None GI: None 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 : None HEENT: None Psych: Anxiety, ADD/ADHD Musculoskeletal: None Derm: Psoriasis - Past Surgical History Past Surgical History: Yes Ortho: Other /TIMBER GIRDLER: section, Tubal ligation, Breast reduction - Present Medications Home Medications: Ambulatory Orders Medication Instructions Recorded Confirmed Fluoxetine HCl [Prozac] 20 mg PO DAILY 08/23/16 11/14/16 Propranolol HCl 10 mg PO DAILY #30 tablet 11/14/16 Atomoxetine HCl [Strattera] 100 mg PO 03/23/18 03/23/18 LORazepam [Ativan] 1 mg PO BID PRN #15 tablet 03/23/18 Ondansetron Odt [Zofran] 4 mg TL Q6H PRN #20 tablet 03/23/18 tiZANidine [Zanaflex] 4 mg pe 03/23/18 Cephalexin [Keflex] 500 mg PO TID #21 capsule 04/11/18 raNITIdine HCl [Ranitidine HCl] 150 mg PO BID #28 capsule 05/29/18 Hydrocodone/Acetaminophen 1 - 2 each PO Q6H PRN #12 tablet 07/20/18 [Hydrocodon-Acetaminophen 5-325] Ibuprofen [Motrin] 800 mg PO Q8H PRN #30 tablet 07/20/18 Penicillin V Potassium 500 mg PO Q6HR #40 tablet 07/20/18 - Allergies Allergies/Adverse Reactions: Allergies Allergy/AdvReac Type Severity Reaction Status Date / Time Latex, Natural Rubber Allergy Intermediate Hives Verified 07/20/18 01:23 citalopram hydrobromide * Allergy Nausea Verified 07/20/18 01:23 [From Celexa] sulfamethoxazole Allergy Edema Verified 07/20/18 01:23 [From Bactrim] trimethoprim [From Bactrim] Allergy Edema Verified 07/20/18 01:23 - Social History Does the pt smoke?: No Smoking Status: Never smoker Does the pt drink ETOH?: Yes Does the pt have substance abuse?: No - Immunizations Immunizations are current?: No Immunizations: TDAP >10years/unknown - POLST Patient has POLST: No PD ED PE NORMAL - Vitals Vital signs reviewed: Yes - General General: Alert and oriented X 3, No acute distress - HEENT HEENT: Moist mucous membranes, Other (Diffuse dental decay. No gingival swelling or abscess. No Bowen's angina. Normal phonation. No trismus) - Neck Neck: Supple, no meningeal sign, No adenopathy - Cardiac Cardiac: RRR, Strong equal pulses - Respiratory Respiratory: No respiratory distress, Clear bilaterally - Derm Derm: Warm and dry - Extremities Extremities: No edema - Neuro Neuro: Alert and oriented X 3 Results - Vitals Vitals: Vital Signs - 24 hr 07/20/18 01:20 Temperature 36.0 C L Heart Rate 78 Respiratory 16 Rate Blood Pressure 149/110 H O2 Saturation 100 Oxygen O2 Source Room air PD MEDICAL DECISION MAKING - ED course Complexity details: considered differential, d/w patient, d/w family ED course: 27-year-old female with dental caries. Will place on antibiotics and pain medications. Has diffuse dental decay. We will have her follow-up with a dentist as soon as possible. Patient counseled regarding signs and symptoms for which I believe and urgent re-evaluation would be necessary. Patient with good understanding of and agreement to plan and is comfortable going home at this time This document was made in part using voice recognition software. While efforts are made to proofread this document, sound alike and grammatical errors may occur. Departure - Departure Disposition: 01 Home, Self Care Clinical Impression: Pain, dental Condition: Good Instructions: ED Tooth Pain Follow-Up: your,dentist tomorrow [Other] Prescriptions: Penicillin V Potassium 500 mg PO Q6HR #40 tablet Hydrocodone/Acetaminophen [Hydrocodon-Acetaminophen 5-325] 1 - 2 each PO Q6H PRN #12 tablet PRN Reason: pain Ibuprofen [Motrin] 800 mg PO Q8H PRN #30 tablet PRN Reason: PAIN &/OR FEVER Comments: Return if you worsen. You need to follow-up with a dentist as soon as possible to have your teeth evaluated. Call your insurance in the morning to find out where you can be seen. Take all antibiotics until gone. Do not drink alcohol or drive while on narcotic pain medicine. Note that many narcotic pain relievers also contain tylenol/acetaminophen. Please ensure that your total dose of acetaminophen from all sources does not exceed 3 grams (3000mg) per day. You may constipated on this medication, take a stool softener such as "Colace" twice a day while you are on it. Also recommend a [id number] laxative such as senna or MiraLAX any day that you do not have a bowel movement. If you received narcotic pain medication in the emergency department, do not drive or operate machinery for the next 24 hours. Discharge Date/Time: 07/20/18 01:56
[2018-07-20] MEDS ORDERED: PENICILLIN VK 250 MG TABLET PO STA (01:44)
[2018-07-20] MEDS ORDERED: HYDROcod/ACETAM 5/325 MG TABLET PO STA (01:44)
[2018-07-20] MEDS ORDERED: ONDANSETRON ODT 4 MG TABLET TL STA (01:53)
== END 2018-07-20 01:56 | disposition home or self-care (01) ==
LOC: ED 01:06
DX: K02.9 Dental caries, unspecified (principal); I10 Essential (primary) hypertension
CPT/HCPCS: 99283; A9270; Q0162

== ENCOUNTER 2018-09-01 20:27 | Outpatient (CLI) | payer MEDICARE | END 2018-09-01 20:28 | disposition short-term general hospital (02) | LOC: EMS 20:27 | PROVIDERS: ATTEND Surgery | DX: F41.0 Panic disorder [episodic paroxysmal anxiety] (principal) | CPT/HCPCS: A0425; A0429 ==

== ENCOUNTER 2018-09-10 13:23 | Emergency (ER) | payer MEDICARE ==
[2018-09-10 13:32] VITALS: BP 139/90
== END 2018-09-10 14:31 | disposition left against medical advice (07) ==
LOC: ED 13:23
DX: Z53.21 Procedure and treatment not carried out due to patient leaving prior to being seen by health care provider (principal)

== ENCOUNTER 2018-09-11 23:13 | Outpatient (CLI) | payer MEDICARE | END 2018-09-11 23:14 | disposition critical access hospital (66) | LOC: EMS 23:13 | PROVIDERS: ATTEND Surgery | DX: F41.9 Anxiety disorder, unspecified (principal); R11.0 Nausea; R00.2 Palpitations ==

== ENCOUNTER 2018-09-11 23:35 | Emergency (ER) | payer MEDICARE ==
[2018-09-11] MEDS ORDERED: ONDANSETRON ODT 4 MG TABLET ONE (23:54)
[2018-09-11] MEDS ORDERED: LORazepam 2 MG/ML VIAL ONE (23:54)
[2018-09-12] MEDS ORDERED: LORazepam 1 MG TABLET PO STA (01:27)
--- NOTE | 2018-09-12 01:27 | ED Physician Documentation ---
PD HPI MHE - Stated complaint Stated Complaint: ANXIETY - Chief complaint Chief Complaint: MHE - History obtained from History obtained from: Patient - History of Present Illness Primary symptom: Anxiety Timing - onset: How many weeks ago (2) Contributing factors: Family Similar symptoms before: Diagnosis (panic attack) Recently seen: Not recently seen - Additional information Additional information: 28-year-old female with a history of anxiety and panic attacks has had more of a problem with her panic attacks over the past 2 weeks. She is having a problem with her 7-year-old son who today in the classroom took off his pants and pee'd all over the class. She states that he has had disciplinary problems and behavioral problems and this is been a stress to the family in general. The patient indicates that her anxiety has escalated and she does not have any medication to control this. She has been on propranolol and cannabis and this is usually helped. Today this is not helping she is here today in tears. Review of Systems Constitutional: denies: Fever Eyes: denies: Decreased vision Ears: denies: Ear pain Throat: denies: Sore throat Respiratory: denies: Cough GI: denies: Vomiting PD PAST MEDICAL HISTORY - Past Medical History Cardiovascular: Hypertension Respiratory: None Endocrine/Autoimmune: None GI: None DIRECTOR OF ATHLETICS: Ovarian cysts : None HEENT: None Psych: Anxiety, ADD/ADHD Musculoskeletal: None Derm: Psoriasis - Past Surgical History Past Surgical History: Yes Ortho: Other /DIRECTOR OF ATHLETICS: section, Tubal ligation, Breast reduction - Present Medications Home Medications: Ambulatory Orders Medication Instructions Recorded Confirmed Fluoxetine HCl [Prozac] 20 mg PO DAILY 08/23/16 11/14/16 RX: Propranolol HCl 10 mg PO DAILY #30 tablet 11/14/16 Atomoxetine HCl [Strattera] 100 mg PO 03/23/18 03/23/18 LORazepam [Ativan] 1 mg PO BID PRN #15 tablet 03/23/18 Ondansetron Odt [Zofran] 4 mg TL Q6H PRN #20 tablet 03/23/18 RX: tiZANidine [Zanaflex] 4 mg pe 03/23/18 Cephalexin [Keflex] 500 mg PO TID #21 capsule 04/11/18 RX: raNITIdine HCl [Ranitidine HCl] 150 mg PO BID #28 capsule 05/29/18 Hydrocodone/Acetaminophen 1 - 2 each PO Q6H PRN #12 tablet 07/20/18 [Hydrocodon-Acetaminophen 5-325] Ibuprofen [Motrin] 800 mg PO Q8H PRN #30 tablet 07/20/18 RX: Penicillin V Potassium 500 mg PO Q6HR #40 tablet 07/20/18 LORazepam [Ativan] 1 mg PO Q6H PRN #20 tablet 09/12/18 Ondansetron Odt [Zofran] 4 mg TL Q6H PRN #10 tablet 09/12/18 - Allergies Allergies/Adverse Reactions: Allergies Allergy/AdvReac Type Severity Reaction Status Date / Time Latex, Natural Rubber Allergy Intermediate Hives Verified 09/10/18 13:32 citalopram hydrobromide * Allergy Nausea Verified 09/10/18 13:32 [From Celexa] sulfamethoxazole Allergy Edema Verified 09/10/18 13:32 [From Bactrim] trimethoprim [From Bactrim] Allergy Edema Verified 09/10/18 13:32 - Social History Does the pt smoke?: No Smoking Status: Never smoker Does the pt drink ETOH?: Yes Does the pt have substance abuse?: No - Immunizations Immunizations are current?: No Immunizations: TDAP >10years/unknown - POLST Patient has POLST: No PD ED PE NORMAL - Vitals Vital signs reviewed: Yes (hypertensive ) - General General: Alert and oriented X 3, Well developed/nourished, Other (anxious and in tears ) - HEENT HEENT: Atraumatic, PERRL, EOMI - Neck Neck: Supple, no meningeal sign, No bony TTP - Cardiac Cardiac: RRR, No murmur - Respiratory Respiratory: No respiratory distress, Clear bilaterally - Abdomen Abdomen: Soft, Non tender - Back Back: No CVA TTP, No spinal TTP - Derm Derm: Normal color, Warm and dry - Extremities Extremities: No deformity, No edema - Neuro Neuro: Alert and oriented X 3, 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, No motor deficit, No sensory deficit, Normal speech Eye Opening: Spontaneous Motor: Obeys Commands Verbal: Oriented GCS Score: 15 - Psych Psych: Normal mood, Normal affect Results - Vitals Vitals: Vital Signs - 24 hr 09/11/18 09/12/18 23:35 02:06 Temperature 36.7 C Heart Rate 90 83 Respiratory 16 18 Rate Blood Pressure 147/108 H 145/107 H O2 Saturation 98 96 Oxygen O2 Source Room air PD MEDICAL DECISION MAKING - ED course Complexity details: reviewed old records, reviewed results, re-evaluated patient, considered differential, d/w patient ED course: 28 y/o female with acute situational anxiety is administered IM ativan and a second dose of ativan PO is very helpful. She is given a script for ativan and she will follow up with Pippa Bryson at [facility]. Departure - Departure Disposition: 01 Home, Self Care Clinical Impression: Anxiety reaction Condition: Stable Instructions: ED Stress React, ED Panic Attack Follow-Up: [facility] [Provider Group] Prescriptions: LORazepam [Ativan] 1 mg PO Q6H PRN #20 tablet PRN Reason: Anxiety Ondansetron Odt [Zofran] 4 mg TL Q6H PRN #10 tablet PRN Reason: Nausea / Vomiting Discharge Date/Time: 09/12/18 02:07
[2018-09-12 02:07] VITALS: BP 145/107
== END 2018-09-12 02:07 | disposition home or self-care (01) ==
LOC: ED 23:35
DX: F41.1 Generalized anxiety disorder (principal); I10 Essential (primary) hypertension
CPT/HCPCS: 99283; J2060; J8499; Q0162

== ENCOUNTER 2018-09-27 18:08 | Outpatient (CLI) | payer MEDICARE | END 2018-09-27 18:09 | disposition short-term general hospital (02) | LOC: EMS 18:08 | PROVIDERS: ATTEND Surgery | DX: S99.922A Unspecified injury of left foot, initial encounter (principal); W22.8XXA Striking against or struck by other objects, initial encounter; Y92.009 Unspecified place in unspecified non-institutional (private) residence as the place of occurrence of the external cause | CPT/HCPCS: A0425; A0429 ==

== ENCOUNTER 2018-10-08 04:15 | Emergency (ER) | payer MEDICARE ==
--- NOTE | 2018-10-08 04:23 | ED Physician Documentation ---
History of Present Illness - Stated complaint Stated Complaint: ANXIETY - Chief complaint Chief Complaint: MHE - History obtained from History obtained from: Patient - History of Present Illness Timing: Chronic Improved by: rest (left foot pain) Worsened by: ambulating, palpation (left foot pain) - Additonal information Additional information: c/o couple of things (per patient). anxiety has been getting really severe, panic attacks all night. also c/o left 4th and 5th toe pain since injury 2 weeks ago (patient says she was diagnosed with fracture). patient says she has no PMD due to I was fired by the clinic for missing too many appointments. she says she has appointments at the end of October with both her new PMD and behavioral health. she says she has been off her prescribed medications for approximately two weeks; she says these medications were fluoxetine 20mg QD, propranolol XR 60mg QD and lorazepam Review of Systems Cardiac: reports: Reviewed and negative Respiratory: reports: Reviewed and negative GI: reports: Reviewed and negative Musculoskeletal: reports: Extremity pain, Pain with weight bearing Psychiatric: reports: Anxiety, Insomnia. 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: Ovarian cysts : None HEENT: None Psych: Anxiety, ADD/ADHD Musculoskeletal: None Derm: Psoriasis - Past Surgical History Past Surgical History: Yes Ortho: Other /MINE CAPTAIN: section, Tubal ligation, Breast reduction - Present Medications Home Medications: Ambulatory Orders Medication Instructions Recorded Confirmed Fluoxetine HCl 20 mg PO 10/08/18 Fluoxetine HCl [Prozac] 20 mg PO DAILY #30 capsule 10/08/18 LORazepam [Lorazepam] 1 mg PO TID PRN #14 tablet 10/08/18 Lorazepam [Ativan] 1 mg PO 10/08/18 Propranolol ER [Inderal LA] 60 mg PO 10/08/18 10/08/18 Propranolol ER [Inderal LA] 60 mg PO DAILY #14 capsule 10/08/18 - Allergies Allergies/Adverse Reactions: Allergies Allergy/AdvReac Type Severity Reaction Status Date / Time Latex, Natural Rubber Allergy Intermediate Hives Verified 10/08/18 04:23 citalopram hydrobromide * Allergy Nausea Verified 10/08/18 04:23 [From Celexa] sulfamethoxazole Allergy Edema Verified 10/08/18 04:23 [From Bactrim] trimethoprim [From Bactrim] Allergy Edema Verified 10/08/18 04:23 - Social History Does the pt smoke?: No Smoking Status: Never smoker Does the pt drink ETOH?: Yes Does the pt have substance abuse?: No - Immunizations Immunizations are current?: No Immunizations: TDAP >10years/unknown - POLST Patient has POLST: No PD ED PE NORMAL - Vitals Vital signs reviewed: Yes - General General: Alert and oriented X 3, Well developed/nourished, Other (appears anxious at times) - Cardiac Cardiac: No murmur - Respiratory Respiratory: No respiratory distress, Clear bilaterally - Derm Derm: Normal color, Warm and dry - Extremities Extremities: Normal ROM s pain, No edema, Other (left foot 4th and 5th toes are dejon taped and there is no swelling or deformity. tenderness to palpation of these two toes with distractable component) - Neuro Neuro: No motor deficit, No sensory deficit PD ED PE EXPANDED - Cardiac Cardiac: Tachy, Regular Rhythm Results - Vitals Vitals: Vital Signs - 24 hr 10/08/18 10/08/18 04:18 06:02 Temperature 36.7 C Heart Rate 129 H 91 Respiratory 18 16 Rate Blood Pressure 148/110 H 134/96 H O2 Saturation 96 100 Oxygen O2 Source Room air PD MEDICAL DECISION MAKING - ED course Complexity details: reviewed old records, considered differential, d/w patient ED course: 14 ED visits over past 12 months ([facility] and ); 6th in 2019 (this includes a [facility] visit 09/10). given ativan, propranolol, tramadol in ED. she then requested zofran, as she was concerned that the tramadol might make her nauseas; zofran was thus also given. on reevaluation, she is asleep, awakens to verbal stimulus and is in NAD. I explained to her that she needs to pursue outpatient follow up and stressed the importance of making regular appointments that she can keep in order to establish herself with appropriate outpatient services Departure - Departure Disposition: 01 Home, Self Care Clinical Impression: Anxiety Condition: Good Instructions: ED Panic Attack Follow-Up: [facility] [Provider Group] [facility] [Provider Group] Prescriptions: Fluoxetine HCl [Prozac] 20 mg PO DAILY #30 capsule LORazepam [Lorazepam] 1 mg PO TID PRN #14 tablet PRN Reason: Anxiety Propranolol ER [Inderal LA] 60 mg PO DAILY #14 capsule Discharge Date/Time: 10/08/18 06:12
[2018-10-08] MEDS ORDERED: traMADol 50 MG TABLET PO STA (04:59)
[2018-10-08] MEDS ORDERED: LORazepam 1 MG TABLET PO STA (04:59)
[2018-10-08] MEDS ORDERED: PROPRANOLOL ER 60 MG CAPSULE PO STA (04:59)
[2018-10-08] MEDS ORDERED: ONDANSETRON ODT 4 MG TABLET TL STA (05:22)
[2018-10-08 06:03] VITALS: BP 134/96
== END 2018-10-08 06:12 | disposition home or self-care (01) ==
LOC: ED 04:15
DX: F41.9 Anxiety disorder, unspecified (principal); M79.675 Pain in left toe(s); I10 Essential (primary) hypertension
CPT/HCPCS: 99283; A9270; J8499; Q0162

== ENCOUNTER 2018-11-03 18:58 | Outpatient (CLI) | payer MEDICARE | END 2018-11-03 18:59 | disposition short-term general hospital (02) | LOC: EMS 18:58 | PROVIDERS: ATTEND Surgery | DX: F41.9 Anxiety disorder, unspecified (principal); R09.89 Other specified symptoms and signs involving the circulatory and respiratory systems | CPT/HCPCS: A0425; A0427 ==

== ENCOUNTER 2019-01-01 22:52 | Outpatient (CLI) | payer MEDICARE | END 2019-01-01 22:53 | disposition short-term general hospital (02) | LOC: EMS 22:52 | PROVIDERS: ATTEND Surgery | DX: F41.9 Anxiety disorder, unspecified (principal); R07.9 Chest pain, unspecified; R11.2 Nausea with vomiting, unspecified | CPT/HCPCS: A0425; A0429 ==

== ENCOUNTER 2020-08-26 03:27 | Emergency (ER) | payer MEDICARE, MEDICAID ==
--- NOTE | 2020-08-26 03:30 | ED Physician Documentation ---
PD HPI HEENT - Stated complaint Stated Complaint: MOUTH PX - History obtained from History obtained from: Patient - History of Present Illness Timing - onset: Yesterday Timing - duration: Days (2) Timing - details: Abrupt onset, Still present Location: Tooth (she had chipped left frontal tooth in the past week or so and it started to get painful with swelling but no drainage since yesterday. She did get her COVID 1st Pfizer vaccine yesterday as well, later in the day and is feeling sore arm, achy, nauseated, and not sure if from tooth or vaccine.) Worsens: Swalllowing Associated symptoms: No: Fever, Congestion, Swollen nodes, Facial swelling Similar symptoms before: Diagnosis (dental infections - has poor dental condition and "need to get all my teeth out", but does not have dnetal insurance for extractions.) Recently seen: Clinic (COVID vaccine yesterday afternoon.) Review of Systems Constitutional: reports: Myalgias (today), Fatigue. denies: Fever Nose: denies: Rhinorrhea / runny nose, Congestion Throat: reports: Dental pain / toothache. denies: Oral lesions / sores, Sore throat, Swollen tonsils Cardiac: denies: Chest pain / pressure Respiratory: denies: Cough GI: reports: Nausea. denies: Abdominal Pain, Vomiting Psychiatric: reports: Anxiety. 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: Ovarian cysts : None HEENT: None Psych: Anxiety, ADD/ADHD Musculoskeletal: None Derm: Psoriasis - Past Surgical History Past Surgical History: Yes Ortho: Other /NARRATIVE WRITER: section, Tubal ligation, Breast reduction - Present Medications Home Medications: Ambulatory Orders Medication Instructions Recorded Confirmed Fluoxetine HCl 20 mg PO 10/08/18 Fluoxetine HCl [Prozac] 20 mg PO DAILY #30 capsule 10/08/18 LORazepam [Lorazepam] 1 mg PO TID PRN #14 tablet 10/08/18 Lorazepam [Ativan] 1 mg PO 10/08/18 Propranolol ER [Inderal LA] 60 mg PO 10/08/18 10/08/18 Propranolol ER [Inderal LA] 60 mg PO DAILY #14 capsule 10/08/18 Chlorhexidine Gluconate [Peridex] 10 ml MM BID #118 ml 08/26/20 HYDROcod/ACETAM 5/325 [[place] 5/325] 1 ea PO Q6H PRN #15 tablet 08/26/20 Ondansetron Odt [Zofran] 4 mg TL Q6H PRN #10 tablet 08/26/20 cephALEXin [Keflex] 500 mg PO TID #20 cap 08/26/20 - Allergies Allergies/Adverse Reactions: Allergies Allergy/AdvReac Type Severity Reaction Status Date / Time Latex, Natural Rubber Allergy Intermediate Hives Verified 08/26/20 03:40 citalopram hydrobromide * Allergy Nausea Verified 08/26/20 03:40 [From Celexa] sulfamethoxazole Allergy Edema Verified 08/26/20 03:40 [From Bactrim] trimethoprim [From Bactrim] Allergy Edema Verified 08/26/20 03:40 - Social History Does the pt smoke?: No Smoking Status: Never smoker Does the pt drink ETOH?: Yes Does the pt have substance abuse?: No - Immunizations Immunizations are current?: No Immunizations: TDAP >10years/unknown - POLST Patient has POLST: No PD ED PE NORMAL - Vitals Vital signs reviewed: Yes - General General: Alert and oriented X 3, Well developed/nourished, Other (appears in pain) - HEENT HEENT: Moist mucous membranes, Pharynx benign. No: Dentition benign (no swelling of tongue, throat, lips to suggest allergic reaction. Has swelling locally buccal side gingiva left lower frontal tooth. Significant decay on most all the teeth.) - Neck Neck: Supple, no meningeal sign, No adenopathy - Cardiac Cardiac: No: RRR (tachycardic but regular, pt states is due to anxiety and heart goes fast with that in the past. ) - Respiratory Respiratory: Clear bilaterally - Abdomen Abdomen: Soft, Non tender - Derm Derm: Normal color, Warm and dry, No rash - Neuro Neuro: Alert and oriented X 3, No motor deficit, Normal speech Results - Vitals Vitals: Vital Signs - 24 hr 08/26/20 03:33 Temperature 36.4 C L Heart Rate 147 H Respiratory 20 Rate Blood Pressure 148/113 H O2 Saturation 100 Oxygen O2 Source Room air PD MEDICAL DECISION MAKING - ED course Complexity details: considered differential (Seems like dental infection with significant caries. Also having some symptoms related to COVID vaccine yesterday with malaise and nausea likely attributable to those. ), d/w patient Departure - Departure Disposition: 01 Home, Self Care Clinical Impression: Infected dental caries, Anxiety, Pain, dental Condition: Stable Record reviewed to determine appropriate education?: Yes Instructions: ED Abscess Dental Follow-Up: Zay Smith DDS [Provider Admit Priv/Credential] - [facility] [Provider Group] Prescriptions: cephALEXin [Keflex] 500 mg PO TID #20 cap HYDROcod/ACETAM 5/325 [[place] 5/325] 1 ea PO Q6H PRN #15 tablet PRN Reason: Pain Chlorhexidine Gluconate [Peridex] 10 ml MM BID #118 ml Ondansetron Odt [Zofran] 4 mg TL Q6H PRN #10 tablet PRN Reason: Nausea / Vomiting Comments: Cephalexin antibiotic 3 times a day as directed. Ondansetron if needed for nausea. Also use chlorhexidine antiseptic oral rinse around the gums and mouth twice daily as directed. Stay well-hydrated. Use Tylenol every 4-6 hours if needed for pain or hydrocodone if needed for worse pain. I would anticipate improvement over the next 2 to 3 days and needing less pain medication. Follow-up with dental or oral surgery and call to see if they accept your insurance, have appts, etc.
--- OUTSIDE RECORDS SUMMARY | 2020-08-26 03:31 | EXTERNAL MEDICAL SUMMARY RPT | Continuity of Care Document ---
:1990 Demographics Phone Unavailable Preferred Language Mosotho Marital Status Unknown Muslim Affiliation Unknown Race Unknown Ethnic Group Unknown Author Organization [facility] Address [address] [phone] Phone Care Team Providers Name Role Phone Alex Dorsey Unavailable Unavailable Medications date description facility 20200710 Acetaminophen 325 MG / Hydrocodone Elizabet rtrate 5 MG Oral [facility] Tablet 20200707 24 HR Methylphenidate Hydrochloride 54 MG [facility] Release Tablet [id number] tramadol hydrochloride 50 MG Oral Table [facility] [id number] 24 HR Methylphenidate Hydrochloride 54 MG [facility] Release Tablet Procedures date description facility 20200710 [facility] 20200617 [facility] Vital Signs date measurement value source [id number] weight_standard 97.98 lb [id number] weight_metric 44.44 kg 20200710 temperature_standard 98.4 F 20200710 temperature_metric 36.89 C 20200710 respiration_rate 16 /min 20200710 height_standard 63 in [id number] height_metric 160.02 cm [id number] heart_rate 98 /min [id number] BP_systolic 136 mm[Hg] 08288617 BP_diastolic 77 mm[Hg] 20200710 BMI 38.2 kg/m2
--- OUTSIDE RECORDS SUMMARY | 2020-08-26 03:37 | EXTERNAL MEDICAL SUMMARY RPT | Continuity of Care Document ---
:1990 Demographics Phone Unavailable Preferred Language Malagasy Marital Status Unknown Episcopalian Affiliation Unknown Race Unknown Ethnic Group Unknown Author Organization [facility] Address [address] [phone] Phone Care Team Providers Name Role Phone Alex Dorsey Unavailable Unavailable Medications date description facility 20200710 Acetaminophen 325 MG / Hydrocodone Elizabet rtrate 5 MG Oral [facility] Tablet 20200707 24 HR Methylphenidate Hydrochloride 54 MG [facility] Release Tablet 71791945 tramadol hydrochloride 50 MG Oral Table [facility] 31282661 24 HR Methylphenidate Hydrochloride 54 MG [facility] Release Tablet Procedures date description facility 20200710 [facility] 20200617 [facility] Vital Signs date measurement value source [id number] weight_standard 97.98 lb [id number] weight_metric 44.44 kg 20200710 temperature_standard 98.4 F 20200710 temperature_metric 36.89 C 20200710 respiration_rate 16 /min 20200710 height_standard 63 in [id number] height_metric 160.02 cm 61739279 heart_rate 98 /min 18593512 BP_systolic 136 mm[Hg] 12662683 BP_diastolic 77 mm[Hg] 20200710 BMI 38.2 kg/m2
[2020-08-26 03:38] VITALS: BP 148/113
[2020-08-26] MEDS ORDERED: ONDANSETRON 4 MG/2 ML VIAL IVP STA (03:45)
[2020-08-26] MEDS ORDERED: HYDROcod/ACETAM 5/325 MG TABLET PO STA (03:45)
[2020-08-26] MEDS ORDERED: LORazepam 0.5 MG TABLET PO STA (03:45)
[2020-08-26] MEDS ORDERED: cephALEXin 250 MG CAPSULE PO STA (03:46)
[2020-08-26] MEDS ORDERED: ONDANSETRON ODT 4 MG TABLET TL STA (03:48)
== END 2020-08-26 04:04 | disposition home or self-care (01) ==
LOC: ED 03:27
DX: K04.7 Periapical abscess without sinus (principal); K02.9 Dental caries, unspecified; K08.89 Other specified disorders of teeth and supporting structures; F41.9 Anxiety disorder, unspecified; R53.81 Other malaise; R11.0 Nausea; T50.Z95A Adverse effect of other vaccines and biological substances, initial encounter; Y84.8 Other medical procedures as the cause of abnormal reaction of the patient, or of later complication, without mention of misadventure at the time of the procedure; I10 Essential (primary) hypertension
CPT/HCPCS: 99284; A9270; Q0162

== ENCOUNTER 2021-02-07 00:22 | Outpatient (CLI) | payer MEDICARE, MEDICAID | END 2021-02-07 00:23 | disposition EMS.NT | LOC: EMS 00:22 | DX: Z03.89 Encounter for observation for other suspected diseases and conditions ruled out (principal) ==

== ENCOUNTER 2021-09-05 13:20 | Emergency (ER) | payer MEDICARE, MEDICAID ==
--- OUTSIDE RECORDS SUMMARY | 2021-09-05 13:36 | EXTERNAL MEDICAL SUMMARY RPT | Continuity of Care Document ---
:1990 Author Organization [facility] Address [address] [place] [address] Phone Care Team Providers Name Role Phone Dorsey Unavailable Unavailable Allergies No information. Encounters No information. Medications date description facility 20210625 24 HR Methylphenidate Hydrochloride 36 MG [facility] Release Tablet 20210625 24 HR Methylphenidate Hydrochloride 18 MG [facility] Release Tablet Problems Procedures date description facility 20210628 [facility] Results No information. Vital Signs date measurement value source 20210628 weight_standard 104.33 lb 20210628 weight_metric 47.32 kg 20210628 temperature_standard 97.7 F 20210628 temperature_metric 36.5 C 20210628 respiration_rate 18 /min 20210628 heart_rate 100 /min 20210628 BP_systolic 160 mm[Hg] 20210628 BP_diastolic 100 mm[Hg]
[2021-09-05] MEDS ORDERED: LORazepam 1 MG TABLET PO STA (14:08)
--- NOTE | 2021-09-05 14:11 | ED Physician Documentation ---
History of Present Illness - Stated complaint Stated Complaint: PANIC ATTACK - Chief complaint Chief Complaint: MHE - Additonal information Additional information: 31-year-old female presents emergency department for treatment of a panic att ack. She reports a longstanding history of anxiety and panic. For a long time she was taking venlafaxine. She stopped taking it about 3 months ago because she was no longer having the panic attacks. However over the last 24 to 48 hours she has begun to have persistent attacks and tachycardia. No chest pain or shortness of air. She would like to receive some medication today to ended this cycle. She did request a refill for her venlafaxine and it is available for pickup today. She also has a history of ADHD for which she takes Concentra. Daily nicotine use. Denies any illicit drugs or alcohol use. Review of Systems Constitutional: reports: Reviewed and negative Nose: reports: Reviewed and negative Throat: reports: Reviewed and negative Cardiac: reports: Reviewed and negative Respiratory: reports: Reviewed and negative GI: reports: Reviewed and negative Psychiatric: reports: Anxiety. denies: Depressed, Suicidal, Homicidal, Hallucinations, Delusions PD PAST MEDICAL HISTORY - Past Medical History Cardiovascular: Hypertension Respiratory: None Endocrine/Autoimmune: None GI: None WARE TESTER: Ovarian cysts : None HEENT: None Psych: Anxiety, ADD/ADHD Musculoskeletal: None Derm: Psoriasis - Past Surgical History Past Surgical History: Yes Ortho: Other /WARE TESTER: section, Tubal ligation, Breast reduction - Present Medications Home Medications: Ambulatory Orders Medication Instructions Recorded Confirmed Fluoxetine HCl 20 mg PO 10/08/18 Fluoxetine HCl [Prozac] 20 mg PO DAILY #30 capsule 10/08/18 LORazepam [Lorazepam] 1 mg PO TID PRN #14 tablet 10/08/18 Lorazepam [Ativan] 1 mg PO 10/08/18 Propranolol ER [Inderal LA] 60 mg PO 10/08/18 10/08/18 Propranolol ER [Inderal LA] 60 mg PO DAILY #14 capsule 10/08/18 Chlorhexidine Gluconate [Peridex] 10 ml MM BID #118 ml 08/26/20 HYDROcod/ACETAM 5/325 [[place] 5/325] 1 ea PO Q6H PRN #15 tablet 08/26/20 Ondansetron Odt [Zofran] 4 mg TL Q6H PRN #10 tablet 08/26/20 cephALEXin [Keflex] 500 mg PO TID #20 cap 08/26/20 LORazepam [Ativan] 1 mg PO ONCE PRN #4 tablet 09/05/21 Venlafaxine HCl [Effexor Xr] 75 mg PO DAILY #7 cap 09/05/21 - Allergies Allergies/Adverse Reactions: Allergies Allergy/AdvReac Type Severity Reaction Status Date / Time Latex, Natural Rubber Allergy Intermediate Hives Verified 09/05/21 13:25 citalopram hydrobromide * Allergy Nausea Verified 09/05/21 13:25 [From Celexa] sulfamethoxazole Allergy Edema Verified 09/05/21 13:25 [From Bactrim] trimethoprim [From Bactrim] Allergy Edema Verified 09/05/21 13:25 - Social History Does the pt smoke?: No Smoking Status: Never smoker Does the pt drink ETOH?: Yes Does the pt have substance abuse?: No - Immunizations Immunizations are current?: No Immunizations: TDAP >10years/unknown - POLST Patient has POLST: No PD ED PE EXPANDED - General General: Alert, No acute distress - Cardiac Cardiac: Tachy, Radial strong equal, Pedal strong equal, Cap refill < 2 sec - Respiratory Respiratory: Clear to ausultation jo ann. No: Distress, Labored - Abdomen Abdomen: Normal Bowel sounds. No: Tender to palpation - Extremities Extremities: Normal. No: Deformity, Tenderness - Neuro Neuro: Alert and Oriented X 3, CNII-XII intact - GCS Eye Opening: Spontaneous Motor: Obeys Commands Verbal: Oriented Total: 15 - Psych Psych: Anxious, Pressured speech Results - Vitals Vitals: Vital Signs - 24 hr 09/05/21 13:25 Temperature 37.0 C Heart Rate 120 H Respiratory 18 Rate Blood Pressure 150/100 H O2 Saturation 100 Oxygen O2 Source Room air PD MEDICAL DECISION MAKING - ED course Complexity details: re-evaluated patient, considered differential, d/w patient ED course: 31-year-old female presents emergency department for treatment of her anxiety and panic attacks that have been ongoing now for about 24 hours. She recently stopped her venlafaxine about 3 months ago. She does have a refill waiting her. This patient was given 2 mg of Ativan and on reevaluation is feeling markedly better with reduced heart rate. Her previous dose of venlafaxine was 150 mg daily. I will start her taper up by asking her to take 75 once daily for a week before resuming the full dose. She is not ferdinand to this medication. A prescription for 5 Ativan tablets will also be sent to the pharmacy. We discussed that with this type of medication the choice to come off of it typically requires a slower taper. She is interested in not having any medications to manage her anxiety and we discussed that working with her therapist can be helpful as well as biofeedback. Emergent return precautions were discussed for chest pain, shortness of air any thoughts of self-harm or harm to others. Departure - Departure Disposition: Home, Self Care Clinical Impression: Panic attacks Prescriptions: LORazepam [Ativan] 1 mg PO ONCE PRN #4 tablet PRN Reason: Anxiety Venlafaxine HCl [Effexor Xr] 75 mg PO DAILY #7 cap Comments: Fanny you are seen today in the emergency department for worsening panic attacks. This follows stopping the venlafaxine about 3 months ago. We did give you a dose of Ativan here in the emergency department. I do encourage you to resume taking the venlafaxine. You should taper up over the next week. I have sent a 7-day prescription to the [facility] in [place]. Take 75 mg daily for the next week then you can resume taking your typical 150 mg dose. I have also sent for Ativan tablets to be used as needed over the next week. If in the long-term you would wish to not take the anxiety medications I encourage you to discuss this closely with Dr. Dorsey. Stopping these medications suddenly can cause withdrawal or more worrisome side effects. If you would like to manage her anxiety and panic sometimes talking with a therapist, discussing alternative ways of managing it such as with meditation or biofeedback can be very helpful.
[2021-09-05 15:00] VITALS: BP 144/89
== END 2021-09-05 15:00 | disposition home or self-care (01) ==
LOC: ED 13:20
DX: F41.0 Panic disorder [episodic paroxysmal anxiety] (principal)
CPT/HCPCS: 99282; 99284

== ENCOUNTER 2023-01-03 03:33 | Emergency (ER) | payer MEDICARE, MEDICAID ==
[2023-01-03] MEDS ORDERED: hydrOXYzine PAMOATE 25 MG CAPSULE PO STA (03:50)
--- NOTE | 2023-01-03 04:04 | ED Physician Documentation ---
History of Present Illness - Stated complaint Stated Complaint: PANIC ATTACK, VOMIT - Chief complaint Chief Complaint: MHE - History obtained from History obtained from: Patient - History of Present Illness Timing: Prior to arrival - Additonal information Additional information: 32-year-old female with history of anxiety, ADHD presents for panic attack. Patient states that she woke up in the middle the night and she was very anxious and she could not get her heart to stop beating so quickly. Patient states that she is on a wait list to see a therapist and expresses frustration that her PCP "decided to not prescribe benzodiazepines to anyone". Previously tried hydrozyzine, however she states that doesn't "work for her" anymore. Patient has been seen in ED numerous times over the years for same complaint. Review of Systems Constitutional: denies: Fever, Chills Cardiac: reports: Palpitations. denies: Chest pain / pressure, Calf pain Respiratory: denies: Dyspnea, Cough, Wheezing : denies: Dysuria, Frequency, Hesitancy Skin: denies: Rash, Lesions, Abrasion (s), Laceration (s) Psychiatric: reports: Anxiety. denies: Depressed, Suicidal, Homicidal PD PAST MEDICAL HISTORY - Past Medical History Cardiovascular: Hypertension Respiratory: None Endocrine/Autoimmune: None GI: None PRE FABRICATOR: Ovarian cysts : None HEENT: None Psych: Anxiety, ADD/ADHD Musculoskeletal: None Derm: Psoriasis - Past Surgical History Past Surgical History: Yes Ortho: Other /PRE FABRICATOR: section, Tubal ligation, Breast reduction - Present Medications Home Medications: Ambulatory Orders Medication Instructions Recorded Confirmed Methylphenidate HCl 36 mg PO DAILY 11/12/22 01/03/23 [Methylphenidate ER] Metoprolol Succinate [Toprol Xl] 25 mg PO DAILY 11/12/22 01/03/23 Ondansetron Odt [Zofran] 4 mg TL Q6H PRN #20 tablet 11/12/22 01/03/23 tiZANidine [Zanaflex] 4 mg PO BID PRN 11/12/22 01/03/23 hydrOXYzine HCL [Hydroxyzine HCl] 50 mg PO TID PRN #60 tablet 01/03/23 - Allergies Allergies/Adverse Reactions: Allergies Allergy/AdvReac Type Severity Reaction Status Date / Time Latex, Natural Rubber Allergy Intermediate Hives Verified 01/03/23 03:44 citalopram hydrobromide * Allergy Nausea Verified 01/03/23 03:44 [From Celexa] sulfamethoxazole Allergy Edema Verified 01/03/23 03:44 [From Bactrim] trimethoprim [From Bactrim] Allergy Edema Verified 01/03/23 03:44 - Social History Does the pt smoke?: No Smoking Status: Never smoker Does the pt drink ETOH?: Yes Does the pt have substance abuse?: No - Immunizations Immunizations are current?: No Immunizations: TDAP >10years/unknown - POLST Patient has POLST: No PD ED PE NORMAL - Vitals Vital signs reviewed: Yes - General General: Alert and oriented X 3, No acute distress, Well developed/nourished - HEENT HEENT: Atraumatic - Neck Neck: Supple, no meningeal sign - Cardiac Cardiac: Strong equal pulses, Other (TACHYCARDIA) - Respiratory Respiratory: No respiratory distress, Clear bilaterally - Abdomen Abdomen: Soft, Non tender, Non distended - Derm Derm: Normal color, Warm and dry, No rash - Extremities Extremities: No deformity, No tenderness to palpate, Normal ROM s pain - Neuro Neuro: Alert and oriented X 3, entry writer 2-12 intact, No motor deficit, Normal speech - Psych Psych: Normal mood, Normal affect Results - Vitals Vitals: Vital Signs - 24 hr 01/03/23 01/03/23 01/03/23 03:39 03:40 04:00 Temperature 36.4 C L Heart Rate 124 H 136 H 122 H Respiratory 16 22 20 Rate Blood Pressure 141/100 H 157/113 H 149/100 H O2 Saturation 99 99 99 01/03/23 01/03/23 04:30 05:00 Temperature Heart Rate 111 H 109 H Respiratory 20 18 Rate Blood Pressure 149/93 H 142/86 H O2 Saturation 97 96 Oxygen O2 Source Room air PD Medical Decision Making - ED course Complexity details: reviewed old records, re-evaluated patient, considered differential, d/w patient, d/w family ED course: Patient presenting for panic attack. Requesting benzodiazepines. Patient is tachycardic, however no acute distress. She has been seen multiple times in our ER for same presentation. Not taking medications due to reported side effects. Heart rate decreased after hydroxyzine. Patient still requesting additional anxiolytic medication, given small dose of Haldol. Patient discharged, she was referred to numerous services in the region for psychiatric services. PCP follow-up advised. Again counseled on the side effects of long-term benzodiazepine use Departure - Departure Disposition: 01 Home, Self Care Clinical Impression: Anxiety attack Condition: Stable Instructions: Anxiety Disorder, ED Panic Attack Prescriptions: hydrOXYzine HCL [Hydroxyzine HCl] 50 mg PO TID PRN #60 tablet PRN Reason: Anxiety Comments: Make sure to follow-up with psychiatry. Benzodiazepines are not appropriate long-term therapy for anxiety and panic disorders. Forms: PCP List Discharge Date/Time: 01/03/23 05:42
--- OUTSIDE RECORDS SUMMARY | 2023-01-03 05:03 | EXTERNAL MEDICAL SUMMARY RPT | Continuity of Care Document ---
Author Name Unknown Address [address] [place] [address] Phone Organization [place] Address [address] [place] [address] Phone Care Team Providers Care Manufacturing Worker Name Role Phone Alex Dorsey Unavailable Unavailable Allergies and Intolerances date description facility reaction severity (no date) citalopram [facility] (no reaction) (no se verity) (no date) clindamycin [facility] (no reaction) (no s everity) (no date) latex [facility] (no reaction) (no se verity) (no date) lisdexamfetamine [facility] (no reaction) (no severity) Medications date description facility 2022-12-13 00:00 Ondansetron [facility] 2022-10-22 00:00 Methylphenidate [facility] 2022-11-19 00:00 Methylphenidate [facility] 2022-12-13 00:00 Doxycycline Hyclate [facility] 2022-11-19 00:00 Fluconazole [facility] 2022-12-13 00:00 Fluconazole [facility] 2022-10-20 00:00 Tizanidine [facility] Problems date description facility 2022-12-13 00:00 Cellulitis [facility] Results/Labs test date facility value unit notes Social History date description facility 2022-12-13 00:00 Smokes tobacco daily (finding) [facility] Vital Signs date measurement value units 2022-12-13 00:00 BMI 42.5 kg/m2 2022-12-13 00:00 BP_diastolic 94 mmHg 2022-12-13 00:00 BP_systolic 162 mmHg 2022-12-13 00:00 heart_rate 107 /min 2022-12-13 00:00 height_metric 160.02 cm 2022-12-13 00:00 height_standard 63 in 2022-12-13 00:00 o2_saturation 98 % 2022-12-13 00:00 respiration_rate 18 /min 2022-12-13 00:00 temperature_metric 36.56 C 2022-12-13 00:00 temperature_standard 97.8 F 2022-12-13 00:00 weight_metric 108.86 kg 2022-12-13 00:00 weight_standard 240 lb
[2023-01-03] MEDS ORDERED: HALOPERIDOL 5 MG/ML VIAL IM STA (05:09)
[2023-01-03 05:23] VITALS: BP 142/86; O2SAT 96
== END 2023-01-03 05:42 | disposition home or self-care (01) ==
LOC: ED 03:33
DX: F41.9 Anxiety disorder, unspecified (principal); I10 Essential (primary) hypertension; Z79.899 Other long term (current) drug therapy
CPT/HCPCS: 96372; 99283

== ENCOUNTER 2023-12-02 16:42 | Outpatient (CLI) | payer MEDICARE, MEDICAID | END 2023-12-02 23:59 | disposition critical access hospital (66) | LOC: EMS 16:42 | DX: R00.0 Tachycardia, unspecified (principal); I10 Essential (primary) hypertension; F41.9 Anxiety disorder, unspecified | CPT/HCPCS: A0425; A0427 ==

== ENCOUNTER 2023-12-02 17:05 | Emergency (ER) | payer MEDICARE, MEDICAID ==
[2023-12-02] MEDS: LORazepam 2 MG/ML VIAL IVP STA ×2 (17:38→20:24)
--- NOTE | 2023-12-02 18:02 | ED Physician Documentation ---
History of Present Illness - Stated complaint Stated Complaint: OD/RAPID HR - Chief complaint Chief Complaint: Cardiac - Additonal information Additional information: Patient is a 33-year-old female presenting to the emergency department with rapid heart rate. Shortly prior to arrival patient took a handful of mushrooms and reports possibly taking her son's Vyvanse medication. She notes she possibly took 1 tab of this medication but she is unsure. She notes this occurred around 12 and 1:00. She denies any nausea or vomiting. She notes her heart rate was rapidly beating she was brought in by EMS and received 6 mg of adenosine and then 12 mg of adenosine and then 20 mg of diltiazem. Patient's heart rate was in the 190s in EMS chart. Patient on a rate arrival was noted to be tachycardic in the 130s. She notes palpitations are still present and she is feeling extremely anxious. She feels she does not want to close her eyes as she is worried she is not waking up. She denies any chest pain or shortness of breath at this time. PD PAST MEDICAL HISTORY - Past Medical History Cardiovascular: Hypertension Respiratory: None Endocrine/Autoimmune: None GI: None SANITIZER: Ovarian cysts : None HEENT: None Psych: Anxiety, ADD/ADHD Musculoskeletal: None Derm: Psoriasis - Past Surgical History Past Surgical History: Yes Ortho: Other /SANITIZER: section, Tubal ligation, Breast reduction - Present Medications Home Medications: Ambulatory Orders Medication Instructions Recorded Confirmed Methylphenidate HCl 36 mg PO DAILY 11/12/22 01/03/23 [Methylphenidate ER] Metoprolol Succinate [Toprol Xl] 25 mg PO DAILY 11/12/22 01/03/23 Ondansetron Odt [Zofran] 4 mg TL Q6H PRN #20 tablet 11/12/22 01/03/23 tiZANidine [Zanaflex] 4 mg PO BID PRN 11/12/22 01/03/23 hydrOXYzine HCL [Hydroxyzine HCl] 50 mg PO TID PRN #60 tablet 01/03/23 - Allergies Allergies/Adverse Reactions: Allergies Allergy/AdvReac Type Severity Reaction Status Date / Time Latex, Natural Rubber Allergy Intermediate Hives Verified 12/02/23 17:44 citalopram hydrobromide * Allergy Nausea Verified 12/02/23 17:44 [From Celexa] sulfamethoxazole Allergy Edema Verified 12/02/23 17:44 [From Bactrim] trimethoprim [From Bactrim] Allergy Edema Verified 12/02/23 17:44 - Social History Does the pt smoke?: No Smoking Status: Never smoker Does the pt drink ETOH?: Yes Does the pt have substance abuse?: No - Immunizations Immunizations are current?: No Immunizations: TDAP >10years/unknown - POLST Patient has POLST: No PD ED PE NORMAL - Vitals Vital signs reviewed: Yes - General General: Alert and oriented X 3, Other (Patient appears anxious but able to answer questions) - HEENT HEENT: Atraumatic, PERRL, EOMI, Moist mucous membranes, Other (Poor oral dentition.) - Neck Neck: Supple, no meningeal sign - Cardiac Cardiac: RRR, No murmur, No gallop, No rub, Strong equal pulses - Respiratory Respiratory: No respiratory distress, Clear bilaterally - Abdomen Abdomen: Normal bowel sounds - Derm Derm: Normal color, No rash - Extremities Extremities: No deformity - Neuro Neuro: Alert and oriented X 3 - Psych Psych: Normal mood, Normal affect Results - Vitals Vitals: Oxygen O2 Source Room air - EKG (time done) 1732 EKG releavant findings:: EKG personally interpreted by author of this note. Relevant findings are: Rate: Rate (enter#) (134), Ez, Tachy, Other Rhythm: Sinus tachycardia [place]: Normal Intervals: Normal ID Ischemia: Normal ST segments Other comments: Other comments (prolonged qtc) Computer interpretation: Agree with computer 2119 EKG releavant findings:: EKG personally interpreted by author of this note. Relevant findings are: Rate: Rate (enter#) Rhythm: Sinus tachycardia [place]: Normal Intervals: Normal ID QRS: Normal Ischemia: Normal ST segments Other comments: Other comments (prolonged QTc) Compare to prior EKG: Unchanged from prior EKG Computer interpretation: Agree with computer - Labs Labs: Laboratory Tests 12/02/23 12/02/23 12/02/23 17:17 18:10 18:10 WBC 20.0 H RBC 5.45 H Hgb 16.2 H Hct 50.0 H MCV 91.7 MCH 29.7 MCHC 32.4 RDW 12.4 Plt Count 426 MPV 10.0 Neut # (Auto) 17.0 H Lymph # (Auto) 1.6 Mckean # (Auto) 1.3 H Eos # (Auto) 0.0 Baso # (Auto) 0.0 Absolute Nucleated RBC 0.00 Band Neuts % (Manual) Not Reportable Abnorm Lymph % (Manual) Not Reportable Nucleated RBC % 0.0 Neutrophils # (Manual) Not Reportable Lymphocytes # (Manual) Not Reportable Monocytes # (Manual) Not Reportable Eosinophils # (Manual) Not Reportable Basophils # (Manual) Not Reportable Differential Comment MANUAL=AUTO DIFF Manual Slide Review Indicated Platelet Estimate NORMAL (130-450,000) Platelet Morphology NORMAL APPEARANCE RBC Morph Micro Appear NORMAL APPEARANCE Sodium 136 Potassium 3.4 L Chloride 103 Carbon Dioxide 23 Anion Gap 10.0 BUN 10 Creatinine 0.6 Estimated GFR (MDRD) 114 Glucose 178 H Calcium 10.3 Magnesium 1.5 L Total Bilirubin 0.3 AST 23 ALT 25 Alkaline Phosphatase 107 Total Creatine Kinase Troponin I High Sens 4.9 Total Protein 8.8 Albumin 4.4 Globulin 4.4 H Albumin/Globulin Ratio 1.0 Urine Color DARK YELLOW Urine Clarity HAZY Urine pH 6.0 Ur Specific [place] >=1.030 H Urine Protein 30 H Urine Glucose (UA) 100 H Urine Ketones TRACE Urine Occult Blood LARGE H Urine Nitrite NEGATIVE Urine Bilirubin SMALL H Urine Urobilinogen 0.2 (NORMAL) Ur Leukocyte Esterase NEGATIVE Urine RBC 6-10 H Urine WBC 4-5 Ur Squamous Epith Cells MANY Squamous H Urine Crystals 6-10 Calcium Oxalate Amorphous Sediment Rare Urine Bacteria Many H Urine Mucus Few Strands Ur Microscopic Review INDICATED Urine Culture Comments NOT INDICATED Urine HCG, Qual NEGATIVE Salicylates < 1.5 Urine Opiates Screen NEGATIVE Ur Buprenorphine Scrn NEGATIVE Ur Oxycodone Screen NEGATIVE Urine Methadone Screen NEGATIVE Acetaminophen 0.2 Ur Barbiturates Screen NEGATIVE Ur Tricyclics Screen NEGATIVE Ur Phencyclidine Scrn NEGATIVE Ur Amphetamine Screen NEGATIVE U Methamphetamines Scrn NEGATIVE U Benzodiazepines Scrn NEGATIVE Urine Cocaine Screen NEGATIVE U Cannabinoids Screen POSITIVE H Ur Drug Screen Comment CUTOFF CONC BELOW: Ethyl Alcohol < 10.0 12/02/23 20:55 WBC RBC Hgb Hct MCV MCH MCHC RDW Plt Count MPV Neut # (Auto) Lymph # (Auto) Mckean # (Auto) Eos # (Auto) Baso # (Auto) Absolute Nucleated RBC Band Neuts % (Manual) Abnorm Lymph % (Manual) Nucleated RBC % Neutrophils # (Manual) Lymphocytes # (Manual) Monocytes # (Manual) Eosinophils # (Manual) Basophils # (Manual) Differential Comment Manual Slide Review Platelet Estimate Platelet Morphology RBC Morph Micro Appear Sodium Potassium Chloride Carbon Dioxide Anion Gap BUN Creatinine Estimated GFR (MDRD) Glucose Calcium Magnesium Total Bilirubin AST ALT Alkaline Phosphatase Total Creatine Kinase 32 Troponin I High Sens Total Protein Albumin Globulin Albumin/Globulin Ratio Urine Color Urine Clarity Urine pH Ur Specific [place] Urine Protein Urine Glucose (UA) Urine Ketones Urine Occult Blood Urine Nitrite Urine Bilirubin Urine Urobilinogen Ur Leukocyte Esterase Urine RBC Urine WBC Ur Squamous Epith Cells Urine Crystals Amorphous Sediment Urine Bacteria Urine Mucus Ur Microscopic Review Urine Culture Comments Urine HCG, Qual Salicylates Urine Opiates Screen Ur Buprenorphine Scrn Ur Oxycodone Screen Urine Methadone Screen Acetaminophen Ur Barbiturates Screen Ur Tricyclics Screen Ur Phencyclidine Scrn Ur Amphetamine Screen U Methamphetamines Scrn U Benzodiazepines Scrn Urine Cocaine Screen U Cannabinoids Screen Ur Drug Screen Comment Ethyl Alcohol PD Medical Decision Making - ED course Complexity details: reviewed old records, reviewed results, re-evaluated patient, d/w patient ED course: Patient is a 33-year-old female presenting to the emergency department with tachycardia patient was brought in by EMS for received 6 mg and then 12 mg of adenosine and then 20 mg of diltiazem for possible SVT. On arrival patient was tachycardic in the 130s she was reporting some symptoms of anxiety but no agitation and endorsed taking a handful of Gummies of mushrooms and her son's Vyvanse. No nausea or vomiting no hot flashes no fevers. Patient's given 2 mg of Ativan on arrival and started on a liter of fluids. Nursing staff called poison control they recommend watching for any seizures Adsitt agitation or hallucinations that she is not having at this time and monitor her for 12 hours with repeat EKGs every 12 hours monitor for persistent tachycardia versus prolonged QTc. Of note patient does have tachycardia at baseline with a history of anxiety causing persistent tachycardia on previous visits. 2018:Reevaluated patient here in the emergency department. She is requesting to leave discussed with patient risk of leaving and she would be eloping with concerns of her overdose of medication would like patient to stay. Patient is willing to stay with nicotine patches ordered. Another dose of Ativan given as patient is still tachycardic. Repeat EKG pending at 2100. Repeat EKG shows tachycardia improving. Labs here in the emergency department remarkable for white blood cell count of 20. Patient taken over by Dr. Lambert at this time 2230. Salicylates, Tylenol and urine drug screen is negative except for cannabinoids. Chest x-ray shows no signs of pneumonia and urine shows no significant UTI. Will continue monitoring here in the emergency department. Departure - Departure Disposition: Home, Self Care Clinical Impression: Tachycardia, Accidental drug ingestion Condition: Stable Instructions: ED Palpitations Comments: Follow-up as needed with your primary care doctor. Your EKG improved while you are in the emergency department. Forms: PCP List Discharge Date/Time: 12/03/23 00:26
[2023-12-02 18:16] LABS: BILIRUBIN,URINE SMALL (NEGATIVE); GLUCOSE, URINE (UA) 100 mg/dL (NEGATIVE); KETONES,URINE (UA) TRACE mg/dL (NEGATIVE); LEUKOCYTE ESTERASE, URINE NEGATIVE (NEGATIVE); NITRITE,URINE NEGATIVE (NEGATIVE); OCCULT BLOOD,URINE LARGE (NEGATIVE); PROTEIN,URINE 30 mg/dL (NEGATIVE); UROBILINOGEN,URINE 0.2 (NORMAL) E.U./dL (NORMAL)
[2023-12-02 18:26] LABS: BASOPHILS % (AUTO) 0.2 %; HGB - HEMOGLOBIN 16.2 g/dL (12.0-16.0); LYMPHOCYTES # (AUTO) 1.6 10^3/uL (1.5-3.5); MEAN CORPUSCULAR HEMOGLOBIN 29.7 pg (27.0-31.0); MEAN CORPUSCULAR HGB CONC 32.4 g/dL (32.0-36.0); MEAN CORPUSCULAR VOLUME 91.7 fL (81.0-99.0); MONOCYTES # (AUTO) 1.3 10^3/uL (0.0-1.0); MONOCYTES % (AUTO) 6.5 %; NEUTROPHILS % (AUTO) 84.9 %; PLT - PLATELET COUNT 426 10^3/uL (130-450); RED BLOOD COUNT 5.45 10^6/uL (4.20-5.40); RED CELL DISTRIBUTION WIDTH 12.4 % (12.0-15.0)
[2023-12-02 18:27] LABS: SLIDE REVIEW? Indicated
[2023-12-02 18:31] LABS: CLARITY,URINE HAZY (CLEAR); HCG UR QUAL NEGATIVE
[2023-12-02 18:35] LABS: TROPONIN I HIGH SENSITIVITY 4.9 ng/L (2.3-14.8)
--- NOTE | 2023-12-02 18:35 | XRAY Report ---
PROCEDURE: Chest 1V INDICATIONS: tachycardia TECHNIQUE: One view of the chest was acquired. COMPARISON: 04/11/2018 FINDINGS: Surgical changes and devices: None. Lungs and pleura: No pleural effusions or pneumothorax. Lungs are clear. Mediastinum: Mediastinal contours appear normal. Heart size is normal. Bones and chest wall: No suspicious bony lesions. Overlying soft tissues appear unremarkable. IMPRESSION: No acute cardiopulmonary process. Reviewed by: Jose Fallon MD on 12/02/2023 6:34 PM PDT Approved by: Jose Fallon MD on 12/02/2023 6:34 PM PDT Station ID: [id number]
[2023-12-02 18:36] LABS: AMORPHOUS SEDIMENT,UR Rare /LPF; BACTERIA,URINE Many /HPF (None Seen); CRYSTALS,URINE 6-10 Calcium Oxalate /LPF; MUCUS,URINE Few Strands; SQUAMOUS EPITHELIAL CELL,UR MANY Squamous (<= Few); THC CANNABINOID SCREEN, URINE POSITIVE (NEGATIVE)
[2023-12-02 18:36] LABS: ACETAMINOPHEN 0.2 ug/mL; ALBUMIN 4.4 g/dL (3.2-5.5); ALKALINE PHOSPHATASE 107 IU/L (42-121); ALT ALANINE AMINOTRANSFERASE 25 IU/L (10-60); AST ASPARTATE AMINOTRANSFERASE 23 IU/L (10-42); BILIRUBIN,TOTAL 0.3 mg/dL (0.2-1.0); BUN - BLOOD UREA NITROGEN 10 mg/dL (6-20); CALCIUM 10.3 mg/dL (8.5-10.3); CARBON DIOXIDE - CO2 23 mmol/L (21-32); CHLORIDE 103 mmol/L (101-111); CREATININE 0.6 mg/dL (0.6-1.3); ETOH - ETHANOL < 10.0 mg/dL; GFR - MDRD 114 (>89); GLUCOSE 178 mg/dL (74-104); MAGNESIUM 1.5 mg/dL (1.7-2.3); POTASSIUM 3.4 mmol/L (3.5-4.5); SODIUM 136 mmol/L (135-145); TOTAL PROTEIN 8.8 g/dL (6.4-8.9)
[2023-12-02 18:37] LABS: AMPHETAMINE SCREEN,URINE NEGATIVE (NEGATIVE); BARBITURATE SCREEN,UR NEGATIVE (NEGATIVE); BENZODIAZEPINES SCREEN, URINE NEGATIVE (NEGATIVE); BUPRENORPHINE SCREEN, URINE NEGATIVE (NEGATIVE); COCAINE SCREEN URINE NEGATIVE (NEGATIVE); METHADONE SCREEN, URINE NEGATIVE (NEGATIVE); METHAMPHETAMINES SCREEN, URINE NEGATIVE (NEGATIVE); OPIATE SCREEN, URINE NEGATIVE (NEGATIVE); OXYCODONE SCREEN, URINE NEGATIVE (NEGATIVE); TRICYCLIC ANTIDEPRESSANT,URINE NEGATIVE (NEGATIVE)
[2023-12-02 19:04] LABS: SALICYLATE < 1.5 mg/dL
[2023-12-02 19:10] LABS: DIFFERENTIAL COMMENT MANUAL=AUTO DIFF; PLATELET ESTIMATE, MANUAL NORMAL (130-450,000) (NORMAL); PLATELET MORPHOLOGY NORMAL APPEARANCE (NORMAL); RBC MORPHOLOGY (MULTIPLE) NORMAL APPEARANCE (NORMAL)
[2023-12-02] MEDS: NICOTINE 14 MG PATCH TOP STA (20:24)
[2023-12-02 23:12] VITALS: O2SAT 98
--- NOTE | 2023-12-03 00:11 | ED Physician Documentation ---
ED Addendum - Addendum Addendum: 12/03/23 00:10 Care patient signed out to myself. Independent review of chart and patient performed. Patient resting comfortably in bed, asymptomatic. She has been monitored without any incident. Patient has family at bedside that states they will monitor her. Patient again denies ever wanting to harm herself or anyone else.
[2023-12-03 00:19] VITALS: BP 122/85
== END 2023-12-03 00:26 | disposition home or self-care (01) ==
LOC: EDUNIT# → ED 17:05
DX: R00.0 Tachycardia, unspecified (principal); T50.901A Poisoning by unspecified drugs, medicaments and biological substances, accidental (unintentional), initial encounter; I10 Essential (primary) hypertension; F41.9 Anxiety disorder, unspecified
CPT/HCPCS: 36415; 71045; 80053; 80143; 80306; 81001; 81025; 82550; 83735; 84484; 85025; 93005; 96374; 96376; 99284; A9270; G0480; J2060; 80179; 81003; 82077; 87086